=== PATIENT | female | born 1960 | race Caucasian/White ===

== ENCOUNTER 2017-04-10 17:30 | Emergency (ER) | payer BC, OTHER ==
[~2017-04-10] VITALS: Ht 160 cm; Wt 66.6 kg
[~2017-04-10 17:30] MED LIST: CYAN3INJ; FRRG PO; LRT5 PO; MULT-506 PO
[2017-04-10 17:48] VITALS: TEMP 36.7; Ht 160 cm; Wt 66.6 kg
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
[2017-04-10] MEDS ORDERED: CYNI1000 INJ (18:43)
[2017-04-10] MEDS ORDERED: CHOL1000 PO (18:43)
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
[2017-04-10 19:27] VITALS: BP 139/85; PULSE 73; O2SAT 93
[2017-07-31] MEDS ORDERED: ROPI0.5T15 PO (14:08)
== END 2017-04-10 19:28 | disposition home or self-care (01) ==
LOC: C.EDB 17:32 → C.EDD 19:28
DX: R51 Headache (principal); M54.2 Cervicalgia; M79.601 Pain in right arm; M79.602 Pain in left arm; V47.5XXA Car driver injured in collision with fixed or stationary object in traffic accident, initial encounter; Z79.899 Other long term (current) drug therapy

== ENCOUNTER → 2017-06-13 | Outpatient (CLI) | payer OTHER ==
[~2017-06-13] MED LIST changes: +CHOL1000 PO; -CYAN3INJ; +CYNI1000 INJ; -FRRG PO; -LRT5 PO; -MULT-506 PO; +ROPI0.5T15 PO
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
== END | disposition home or self-care (01) ==
LOC: C.RDSM 11:31
PROVIDERS: ATTEND Internal Medicine
DX: M54.5 Low back pain (principal); M41.9 Scoliosis, unspecified

== ENCOUNTER → 2017-06-18 | Outpatient (CLI) | payer OTHER ==
--- NOTE | 2017-06-18 16:04 | DIAGNOSTIC IMAGING REPORT ---
MRI OF THE LUMBAR SPINE WITHOUT IV CONTRAST CLINICAL HISTORY: Low back pain. COMPARISON STUDY: Radiographs of lumbar spine dated 06/13/2017. TECHNIQUE: MRI of the lumbar spine is performed using various T1 and T2-weighted sequences in the axial and sagittal planes. IV contrast was not administered for this examination. FINDINGS: Lumbar spine: Vertebral body height and alignment are maintained throughout the lumbar spine. Normal marrow signal intensity is preserved throughout the visualized bony structures. The transverse and spinous processes are intact as imaged. There is no evidence of spondylolysis. No destructive bony lesion is suggested. Intervertebral discs: There is degenerative disc desiccation seen throughout the lumbar spine. There is no significant loss of height. Spinal cord: Visualized portions of the spinal cord are normal in morphology and signal intensity. The conus medullaris terminates at the level of L1. The nerve roots of the cauda equina are normal in morphology. L1-L2: Unremarkable. L2-L3: Unremarkable. L3-L4: There is a small posterior disc bulge with annular fissure. There is no significant acquired compromise of the central canal. Facet arthropathy is of no confluence. The neural foramina are patent. L4-L5: There is minimal posterior disc bulge. There is no significant acquired compromise of the central canal. Facet arthropathy is of no confluence. The neural foramina are patent. L5-S1: The central canal and neural foramina are patent. Facet arthropathy is of no consequence. Sacrum: The visualized sacrum is normal in morphology and signal intensity. Small Tarlov cysts are suggested measuring up to 13 mm. Soft tissues: The paraspinous soft tissues are within normal limits. The partially imaged retroperitoneal structures are grossly unremarkable but incompletely evaluated. IMPRESSION: 1. There is no disc herniation or significant central canal stenosis seen throughout the lumbosacral spine. 2. Degenerative disc disease and mild spondylotic change as above. See above discussion for detailed level by level analysis. 3. No destructive bony lesion is identified. Dictated: 06/18/2017 3:31 PM Transcribed: 06/18/2017 4:03 PM Brittany Electronically signed by: Ty Raymond M.D. 06/19/2017 7:11 AM Dictated Date/Time: 06/18/2017 3:31 PM
== END | disposition home or self-care (01) ==
LOC: C.MRIBC 14:46
PROVIDERS: ATTEND Internal Medicine
DX: M54.5 Low back pain (principal)

== ENCOUNTER → 2017-07-17 | Outpatient (CLI) | payer OTHER ==
--- NOTE | 2017-07-17 13:52 | DIAGNOSTIC IMAGING REPORT ---
LEFT KNEE RADIOGRAPHS WITH COMPARISON STANDING AP RADIOGRAPH OF THE RIGHT KNEE CLINICAL HISTORY: Left knee pain. COMPARISON: None FINDINGS: Comparison standing AP radiograph the right knee demonstrates no fracture. There is mild osteophytosis. Alignment of the left knee is anatomic. There is no fracture or suspicious lesion. A moderate left knee joint effusion is present. There is mild patellofemoral compartment joint space narrowing with tricompartmental osteophytosis. There are a few possible small joint bodies. IMPRESSION: 1. No acute fracture. 2. Moderate left knee joint effusion. Possible small joint bodies. 3. Moderate osteoarthritis within the patellofemoral compartment with mild osteoarthritis within the medial and lateral compartments of the left knee. Electronically signed by: Brodie Samano M.D. 07/17/2017 1:51 PM Dictated Date/Time: 07/17/2017 1:48 PM
== END | disposition home or self-care (01) ==
LOC: C.RDSM 13:29
PROVIDERS: ATTEND Physician Assistant
DX: M25.562 Pain in left knee (principal); M25.462 Effusion, left knee; M17.12 Unilateral primary osteoarthritis, left knee

== ENCOUNTER → 2017-07-31 | Day surgery (SDC) | payer OTHER ==
[2017-07-08 11:12] VITALS: Ht 160 cm; Wt 65.9 kg
[~2017-07-31] VITALS: Ht 160 cm; Wt 65.9 kg
[~2017-07-31] MED LIST changes: +IOPAMIDOL INJ 61% 15 ML VIAL ONE; +LIDOCAINE HCL 1% MPF 5 ML VIAL ONE; +SODIUM CHLORIDE 0.9% INJ 10 ML VIAL ONE
--- NOTE | 2017-07-31 14:55 | History & Physical Bridge - SC ---
H&P Re-Evaluation Bridge Note: I have examined the patient, reviewed the History & Physical and in the interval since the performance of the History & Physical I have noted the following changes of clinical significance: No changes noted
[2017-07-31 15:22] VITALS: TEMP 36.8
--- NOTE | 2017-07-31 15:28 | Discharge Instructions ---
Discharge Instructions Date of Service Jul 31, 2017. Visit Reason for Visit: Sacral Radiculopathy Discharge Discharge Diagnosis / Problem: right leg pain Discharge Goals Goal(s): Decrease discomfort, Improve function Activity Recommendations Activity Limitations: resume your previous activity Anesthesia . Post Anesthesia Instructions: If you have had General Anesthesia or IV Sedation: * Do not drive today. * Resume driving when surgeon permits. * Do not make important decisions or sign legal documents today. * Call surgeon for: 1. Temperature elevations greater than 101 degrees F. 2. Uncontrollable pain. 3. Excessive bleeding. 4. Persistent nausea and vomiting. 5. Medication intolerance (nausea, vomiting or rash). * For nausea and vomiting use only clear liquids such as: tea, soda, bouillon until nausea subsides, then gradually increase diet as tolerated. * If you have any concerns or questions, call your surgeon's office. If physician is unavailable and it is an emergency, call 911 or go to the nearest emergency room. . Diet Recommendations Recommended Home Diet: resume previous diet Procedures Procedures Performed: LUMBAR EPIDURAL STEROID INJECTION Pending Studies Studies pending at discharge: no Medical Emergencies . Who to Call and When: Medical Emergencies: If at any time you feel your situation is an emergency, please call 911 immediately. . Non-Emergent Contact Non-Emergency issues call your: Specialist . . "Provider Documentation" section prepared by Trevor Bellamy. .
[2017-07-31 15:34] VITALS: BP 167/99; PULSE 70; O2SAT 100
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
== END | disposition home or self-care (01) ==
LOC: X.SURG 14:01
PROVIDERS: ATTEND Physical Medicine & Rehabilitation
DX: M54.17 Radiculopathy, lumbosacral region (principal)

== ENCOUNTER 2024-10-06 04:55 | Observation (INO) ==
--- NOTE | 2024-09-21 13:34 | PAT Medication Instructions ---
Medication Instructions Date of Service September 21, 2024 Home Medications multivitamin 1 tab PO QAM ropinirole 1 mg tablet 1 mg PO QAM cholecalciferol (vitamin D3) 125 mcg (5,000 unit) tablet (Vitamin D3) 250 mcg PO WK cyanocobalamin (vitamin B-12) 1,000 mcg/mL injection solution 0 mcg IM MONTHLY acetaminophen 500 mg tablet (Tylenol Extra Strength) 1,000 mg PO UD PRN calcium 600 mg capsule 600 mg PO HS celecoxib 200 mg capsule (Celebrex) 200 mg PO HS oxybutynin chloride 10 mg tablet,extended release 24 hr 10 mg PO QAM ropinirole 1 mg tablet 2 mg PO HS Continue as directed cyanocobalamin (vitamin B-12) 1,000 mcg/mL injection solution 0 mcg IM MONTHLY acetaminophen 500 mg tablet (Tylenol Extra Strength) 1,000 mg PO UD PRN(if needed) ASK your surgeon for instructions celecoxib 200 mg capsule (Celebrex) 200 mg PO HS DO NOT take the morning of surgery multivitamin 1 tab PO QAM cholecalciferol (vitamin D3) 125 mcg (5,000 unit) tablet (Vitamin D3) 250 mcg PO WK oxybutynin chloride 10 mg tablet,extended release 24 hr 10 mg PO QAM Take morning of surgery With a small sip of water, OTHERWISE NOTHING TO EAT OR DRINK AFTER MIDNIGHT: ropinirole 1 mg tablet 1 mg PO QAM Take evening before surgery calcium 600 mg capsule 600 mg PO HS ropinirole 1 mg tablet 2 mg PO HS Other Notes If you have any questions please call us at [phone] or [phone] or [phone] or [phone]
--- NOTE | 2024-09-22 15:29 | Anesthesiology Consultation ---
Date of Service September 22, 2024 Assessment & Plan (1) Encounter for pre-operative examination: - Infectious disease screening: Per assessment on 09/22/24- No known recent infectious disease contacts or current infectious disease symptoms. - Outpatient joint assessment: Pt currently scheduled for inpatient pathway. If surgeon requests review for outpatient joint pathway, patient is an acceptable candidate for outpatient joint program from anesthesia standpoint pending surgeon's office assessment that patient is motivated, has good support and completes [facility] Day Joint Program preop requirements. - Cardiology visit (07/27/24): "Pt returns to EP for remote F/Q due to loop at OVI.. Syncope s/p LINQ insertion 02/2021.. Junctional bradycardia.. S/p gastric bypass surgery.. Pt Might need a right knee replacement.. Pt had plastic surgery on her thighs to remove the extra skin.. Post op she had hypertensive urgency with spilling troponins and had a cardiac cath and was told everything was fine.. Recommend loop insertion explant.. Recommend echo.." > Insurance denial for insertion of new loop device per communications notes (cardio aware). Echo obtained 07/29/24. - Patient acceptable risk for surgery pending surgeon-ordered PCP ([facility]/Dr. Yady Craig) and cardiology ([facility]/Dr. Watts) clearances ([facility] communications notes started regarding this). Chart Review Chart Review: Patient seen in Pre Admission Testing Teaching & Discussion Pre-Anesthesia Teaching/Discussion Notes: Instructed NPO after midnight before surgery,except medications with 15 cc of water. Medication instructions provided according to the PAT guidelines. History Surgery Operation Date: 10/06/24 07:15 Proposed Procedures p Left Total Knee Arthroplasty - Epifanio Rodney Dominguez MD Height/Weight Height: 5 ft 1 in Weight: 64.4 kg Allergies Allergy/AdvReac Type Severity Reaction Status Date / Time gabapentin AdvReac Fluid Verified 09/22/24 16:09 retention Medications Home Medications Medication Instructions Recorded Confirmed Last Taken multivitamin 1 tab PO QAM 03/04/19 09/21/24 02/29/20 ropinirole 1 mg tablet 1 mg PO QAM 03/04/19 09/21/24 02/28/20 cholecalciferol (vitamin D3) 125 250 mcg PO WK 02/29/20 09/21/24 02/27/20 mcg (5,000 unit) tablet (Vitamin D3) cyanocobalamin (vitamin B-12) 0 mcg IM MONTHLY 02/29/20 09/21/24 02/28/20 1,000 mcg/mL injection solution acetaminophen 500 mg tablet 1,000 mg PO UD PRN Pain 06/14/20 09/21/24 Unknown (Tylenol Extra Strength) calcium 600 mg capsule 600 mg PO HS 09/21/24 09/21/24 Unknown celecoxib 200 mg capsule (Celebrex) 200 mg PO HS 09/21/24 09/21/24 Unknown oxybutynin chloride 10 mg 10 mg PO QAM 09/21/24 09/21/24 Unknown tablet,extended release 24 hr ropinirole 1 mg tablet 2 mg PO HS 09/21/24 09/21/24 Unknown Past Medical History Medical History (Updated 09/22/24 @ 15:27 by Gloria Silver) History of colon polyps History of depression Situational after loss of mother History of high blood pressure Single episode 2021 post sx complication (thighplasty) per patient History of syncope (2019) x3 incidents in 2019 (none since) Loop recorder placed Follows with [facility]/Dr. Watts Osteoarthritis Overactive bladder Restless leg syndrome Exercise / Class Metabolic Activity II 4-5 Yardwork/Stairs/Walk up hill Past Family History Family History Mother Family history of diabetes mellitus Uncle Family hx of colon cancer Past Surgical History Surgical History (Updated 09/22/24 @ 15:27 by Gloria Silver) H/O gastric bypass 2002 History of abdominoplasty History of appendectomy History of breast lift History of cardiac cath 1992- no stents History of cholecystectomy History of colonoscopy History of dilatation and curettage History of facelift Per records History of herniorrhaphy History of laparoscopy History of plastic surgery (2021) Thighplasty Following sx drain stopped working and both legs opened up ("had to heal openly") History of tonsillectomy History of tooth extraction History of total abdominal hysterectomy and bilateral salpingo-oophorectomy Implantable loop recorder present Needs new battery/insurance denying due to only hx of syncope was in 2019 per pt Past Anesthesia History No Hx of Anesthesia Complications and No Family Hx of Anesthesia Complications History of PONV No Hx of PONV and No Hx of Motion Sickness Social History Smoking Status: Former smoker tobacco type: cigarettes Smoking cigarettes per day: LESS THAN 10 CIG DAILY Do You Dip or Chew Tobacco: No Smoking End Date: 4 yr ago Hx Alcohol Use: No Hx Substance Use: No substance use type: does not use Review of Systems Patient denies chest pain, shortness of breath, dyspnea on exertion, fever, chills, cough, wheezing. Physical Exam Vital Signs BP 139/92 P 70 SP02 95%RA RESP 16 Physical Full cervical extension range of motion. Full TMJ range of motion. TMD 3 finger breaths Mallampati Score I Dentition: full upper/lower dentures Lungs: clear throughout to auscultation Cardiac: regular rate and rhythm, no murmurs noted Spine: normal Carotid arteries: negative bruit Extremities: no LE edema Lab Results Anesthesia Preop Results Results Anesthesia Widget: WBC 6.35 K/ul (4.8-10.8) 09/22/24 Hgb 11.9 g/dl (12.0-16.0) L 09/22/24 Hct 35.9 % (37.0-47.0) L 09/22/24 Plt 366 K/uL (130-400) 09/22/24 Na 138 mmol/L (136-145) 09/22/24 K 4.1 mmol/L (3.5-5.1) 09/22/24 Cl 103 mmol/L (98-107) 09/22/24 CO2 26 mmol/L (21-32) 09/22/24 BUN 23 mg/dl (6-23) 09/22/24 Creat 0.64 mg/dl (0.6-1.2) 09/22/24 Glucose Level 93 mg/dl (70-99(Fasting)) 09/22/24 PT 10.3 Seconds (9.0-12.0) 09/22/24 PTT 25 Seconds (21-31) 09/22/24 INR 0.9 (0.9-1.1) 09/22/24 Urine Color Yellow 09/22/24 Urine Appearance Clear (Clear) 09/22/24 Urine pH 5.5 (4.5-7.5) 09/22/24 Urine Specific [place] 1.023 (1.000-1.030) 09/22/24 Urine Protein Negative (Negative) 09/22/24 Urine Glucose (UA) Negative (Negative) 09/22/24 Urine Ketones Negative (Negative) 09/22/24 Urine Blood Trace (Negative) H 09/22/24 Urine Nitrite Negative (Negative) 09/22/24 Urine Bilirubin Negative (Negative) 09/22/24 Urine Urobilinogen Negative (Negative) 09/22/24 Urine Leukocyte Esterase Negative (Negative) 09/22/24 Urine WBC (Auto) 0-5 /hpf (0-5) 09/22/24 Urine RBC (Auto) 3-5 /hpf (0-2) H 09/22/24 Urine Hyaline Casts (Auto) 0-2 /lpf (0-2) 09/22/24 Urine Epithelial Cells (Auto) 0-2 /hpf (0-2) 09/22/24 Urine Bacteria (Auto) None Seen (None Seen) 09/22/24 Blood Type A Negative 09/22/24 Antibody Screen NEGATIVE 09/22/24 Testing Electrocardiogram Date: 07/27/24 Sinus bradycardia 57 bpm. 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 Chest X-Ray Date: 09/22/24 FINDINGS: The lungs are clear and well-expanded with no pulmonary infiltrate or pleural effusion. The cardiomediastinal silhouette is within normal limits. Prominence of the aortic arch is seen with arteriosclerotic calcification. Loop recorder device is seen overlapping the cardiac silhouette. Mild spondylosis in the visualized thoracic spine. IMPRESSION: 1. No acute cardiopulmonary disease. 2. Arteriosclerotic changes in the thoracic aorta Echocardiogram Date: 07/29/24 LVEF 60 to 64%. LV wall motion is normal. Grade 1 diastolic dysfunction. Mild MR. No LV mural thrombus. Stress Test Date: 02/23/21 Stress echo is negative for inducible ischemia. No arrhythmias. Above average exercise tolerance for age. 10.1 METS. 95% MPHR. At rest, normal LV chamber size wall thickness. EF 60 to 65%. Grade 1 diastolic dysfunction. No significant valvular pathology. Other Testing Loop Recorder report Date: 08/02/24 0% AT burden. No new clinically significant arrhythmias oversensing of T waves. Current battery status: BALL SHAGGER. Battery depletion rate appears normal. Presenting rhythm SR. "This is a normal remote diagnostic device check"
[2024-10-06] MEDS: Scopolamine 1 MG TDSY TD SCH (06:10)
[2024-10-06] MEDS: ACETAMINOPHEN 500 MG TAB PO SCH ×2 (06:10→14:01)
[2024-10-06] MEDS: CeleBREX 200 MG CAP PO SCH (06:10)
[2024-10-06] MEDS: LR 500ML BOLUS, THEN 15ML/HR IV SCH (06:11)
[2024-10-06] MEDS: LR 60ML/HR IV SCH (06:12)
[2024-10-06] MEDS ORDERED: BUPIVACAINE 0.5 % 5 MG/1 ML PF 10ML VIAL ONE (06:23)
[2024-10-06] MEDS ORDERED: ROPIVACAINE 0.5% 5 MG/ML 30 ML VIAL ONE (06:24)
--- NOTE | 2024-10-06 06:35 | History & Physical Bridge Note ---
Date of Service October 06, 2024 History & Physical Bridge Note I have examined the patient, reviewed the History & Physical and in the interval since the performance of the History & Physical I have noted the following changes of clinical significance: no changes noted
[2024-10-06] MEDS ORDERED: ONDANSETRON INJ 2 MG/ML 2 ML VIAL ONE (06:38)
[2024-10-06] MEDS ORDERED: MIDAZOLAM HCL 1 MG/ML 2ML VIAL ONE (06:38)
[2024-10-06] MEDS ORDERED: GLYCOPYRROLATE 0.2 MG/ML VIAL ONE (06:38)
[2024-10-06] MEDS ORDERED: PROPOFOL IV EMULSION 10 MG/ML 100 ML VIAL IV ONE (06:38)
[2024-10-06] MEDS ORDERED: LIDOCAINE 2% 2 ML VIAL/AMP(20MG/ML) INFIL ONE (06:38)
[2024-10-06] MEDS ORDERED: fentaNYL citrate PF 100 MCG/2 ML VIAL ONE (06:39)
[2024-10-06] MEDS ORDERED: KETAMINE HCL 10MG/ML SYR ONE (06:39)
[2024-10-06] MEDS: TRANEXAMIC ACID 1,000 MG **IV Pre-op IV SCH (06:48)
[2024-10-06] MEDS: ceFAZolin 2000MG 2,000 MG/15 ML SYR IV SCH ×2 (07:00→15:35)
[2024-10-06] MEDS ORDERED: KETOROLAC 30 MG/ML VIAL ONE (07:09)
[2024-10-06] MEDS ORDERED: ATROPINE SULFATE 0.1 MG/ML 10ML SYR IV PRN (07:18)
[2024-10-06] MEDS ORDERED: HYDROmorphone INJ 1 MG/ML SYRINGE IV PRN (07:18)
[2024-10-06] MEDS ORDERED: KETOROLAC 30 MG/ML VIAL IV PRN (07:18)
[2024-10-06] MEDS ORDERED: ONDANSETRON INJ 2 MG/ML 2 ML VIAL IV PRN ×2 (07:18→11:18)
[2024-10-06] MEDS ORDERED: ePHEDrine sulfate 50 MG/ML AMP IV PRN (07:18)
[2024-10-06] MEDS: ORTHO JOINT ANESTHETIC ONE (08:19)
[2024-10-06] MEDS: ROPIV 0.5% 246mg, Ketorolac 30mg, EPINEPHrine 0.5mg in NSS INFIL SCH (08:50)
[2024-10-06] MEDS: TRANEXAMIC ACID 1,000 MG **IV Intra-op IV SCH (08:50)
--- NOTE | 2024-10-06 09:23 | Post Operative Brief Note ---
Immediate Post Op Note Date of Surgery October 06, 2024 Pre & Post Diagnosis Operation Date: 10/06/24 07:00 Pre-Op Diagnosis: Left Knee Osteoarthritis Post-Op Diagnosis: Left Knee Osteoarthritis I identified the patient and participated in the time-out.: Yes Procedure Operation Date: 10/06/24 07:00 Actual Procedures p Left Total Knee Arthroplasty(Left) - Epifanio Dominguez MD Surgeon Epifanio Dominguez MD Electrical Sign Wirer Silas Diaz PA-C (No fellow avail) Estimated Blood Loss 75 Findings Consistent with Post-Op Diagnosis Fluids 1000 cc Specimens Left knee contents Anesthesia Type MAC Spinal Regional Complications none
--- NOTE | 2024-10-06 09:23 | Operative Report ---
Post Operative Report Pre & Post Diagnosis Operation Date: 10/06/24 07:00 Pre-Op Diagnosis: Left Knee Osteoarthritis Post-Op Diagnosis: Left Knee Osteoarthritis I identified the patient and participated in the time-out.: Yes Procedure Operation Date: 10/06/24 07:00 Actual Procedures p [Left] Total knee replacement, imageless computer assisted navigation (Left) - Epifanio Dominguez MD Surgeon Epifanio Dominguez MD Tight Barrel Inspector Silas Diaz PA-C (No fellow avail) Estimated Blood Loss 75 Findings See Below Examined Under Anesthesia: ROM -- There was 5 degrees to 125 degrees of flexion Ligamentous examination -- revealed stable Angelic, posterior drawer, varus and valgus stress at 0 and 30 degrees. Outerbridge Grade IV changes of all 3 compartments. There was some synovitis and fibrinous material in the suprapatellar pouch. Fluids 1000 cc Specimens Left knee contents Drains n/a Anesthesia Type MAC Spinal Regional Complications none Indications This is a 64-year-old female who has clinical and radiographic findings consistent with osteoarthritis of the a left knee. I recommended that a left total knee replacement be performed. The patient understands the risks of surgery, which include but not limited to: bleeding, infection, re-operation, damage to nerves and arteries, continued knee pain, knee stiffness, DVT, and . The patient understands all these instructions and explanations, all his questions have been satisfactorily addressed and the patient has elected to proceed. Informed consent was signed. Description of Procedure IMPLANTS: 1. Femur: Triathlon #4 Left PS. 2. Tibia: Triathlon #3 Spicer with 12 x 50 mm stem. 3. Insert: Triathlon #3 x 9 mm PS X3 poly. 4. Patella: Triathlon A29 x 9 mm X3 poly. 5. Palacos cement. Silas Diaz PA-C is assisting with positioning, retracting, and closure due to fellow not available. Procedure: The patient was taken to the Operating Room and placed in the supine position after spinal and adductor canal nerve block was administered. My initials and a multidisciplinary time-out were used to identify the left leg as the correct operative limb. A tourniquet was placed high in the thigh. Prior to the incision, 2 grams of intravenous Ancef were given. One g of TXA was given pre- operatively and another after the tourniquet was released. The left leg was then prepped and draped in a standard sterile fashion. An Esmarch was used to exsanguinate the leg and the tourniquet was inflated to 250 mmHg. The planned mid-line 20 cm incision was created exposing the extensor mechanism. The medial parapatellar arthrotomy was made and the patella was everted. The patella was addressed first. It was prepared by reaming from 17 mm down to 11 mm. An A29 button was found to fit best. The peg holes were made in the standard fashion. The femur was addressed next and using computer assisted OrthoAlign with 3 degrees of flexion and 0 degrees of valgus, removing 10 mm in the standard fashion for the distal cut. The cut was made and the 4-in-1 cutting block for a size 4 femur was placed. These cuts and the cuts to place the box were made in the standard fashion. Our attention was then drawn to the tibia cut with using imageless computer assisted OrthoAlign, taking 2 mm from the lateral low side. There was sufficient extension and flexion gap to fit a 9 mm spacer. A #3 Tibial baseplate fit well. A trial with a 9 mm spacer showed excellent stability in both flexion and extension, with good ligament balance, and thumbs free patellar tracking. Range of motion of 0-130 degrees. The tibial baseplate was prepped for the keel and stem. A stem was used due to some areas of soft bone, to avoid subsidence. All components were removed. 90 ml of total knee cocktail were injected into the soft tissues and periosteum. All surfaces were copiously irrigated prior to placement of the components. The femoral component followed by Tibial baseplate were cemented in place and the 9 mm X3 poly was placed. Next, the patellar button was placed using the same cement. Once the cement had cured, the range of motion and stability were unchanged. The tourniquet was deflated. Hemostasis was obtained. Another 1g TXA was given. The extensor mechanism was closed with 1-0 Vicryl and 0 Stratafix with the knee bent approximately 60 degrees in a standard fashion. The peritenon and deep fascia was closed with 2-0 Vicryl. The subcutaneous layer was closed with 3-0 Vicryl. The skin was closed with Zipline and shield. The limb was cleaned and dried. 4x4 dressing was placed over top followed by ABDs, sterile Webril, and a foot to thigh Meño bandage. The patient was then transferred to the Recovery Room in stable condition. The sponge and needle counts were correct. POST-OP INSTRUCTIONS: The patient will be WBAT. The patient will be admitted to the hospital. Complete 24-hour course antibiotics. Labs will be obtained during the stay. DVT prophylaxis will include aspirin for 6 weeks, TEDs, and mechanical foot pumps. The dressing will be changed postop day #2-3 and covered with a Silverlon dressing. I attest to the content of the Intraoperative Record and any orders documented therein. Any exceptions are noted below.
--- NOTE | 2024-10-06 09:46 | Operative Report ---
Post Operative Report Pre & Post Diagnosis Operation Date: 10/06/24 07:00 Pre-Op Diagnosis: Left Knee Osteoarthritis Post-Op Diagnosis: Left Knee Osteoarthritis I identified the patient and participated in the time-out.: Yes Procedure Operation Date: 10/06/24 07:00 Actual Procedures p Left Total Knee Arthroplasty(Left) - Epifanio Rodney Dominguez MD Surgeon Dr Dominguez Verify Rep Silas Diaz PA-C (No fellow avail) Estimated Blood Loss 75 Findings Consistent with Post-Op Diagnosis Specimens left knee bone and synovium Description of Procedure Pt was taken to operating room and properly positioned for procedure. Refer to anesthesia's note for anesthesia used. Pt was given pre-op antibiotics. Prepped and draped in sterile fashion. I was present during the entire case and assisted with positioning, instrumentation, closure and dressings. Please see surgeon's op report for further detail. Pt was awake and transferred to PACU in stable condition I attest to the content of the Intraoperative Record and any orders documented therein. Any exceptions are noted below.
--- NOTE | 2024-10-06 10:27 | XRay Report ---
XR knee LT 1 or 2V routine CLINICAL HISTORY: Postoperative evaluation. COMPARISON: Left knee radiographs June 10, 2024. FINDINGS: Alignment of the total left knee arthroplasty is anatomic. There is no periprosthetic frac ture or unexpected radiopaque foreign body. IMPRESSION: Expected findings following total left knee arthroplasty. ACT 112: Negative or not required by law. Electronically signed by: Brodie Samano M.D. 10/06/2024 10:25 AM
[2024-10-06] MEDS ORDERED: NALOXONE HCL 0.4 MG/1 ML VIAL/CARP IV PRN (11:18)
[2024-10-06] MEDS ORDERED: HYDROmorphone INJ 0.5 MG/0.5 ML SYR IV PRN (11:18)
[2024-10-06] MEDS ORDERED: bisacodyL 10 MG SUPP PR PRN (11:18)
[2024-10-06] MEDS ORDERED: METOCLOPRAMIDE HCL INJ 5 MG/ML 2 ML VIAL IV PRN (11:18)
[2024-10-06] MEDS ORDERED: diphenhydrAMINE Capsule 25 MG CAP PO PRN (11:18)
[2024-10-06] MEDS ORDERED: MAGNESIUM HYDROXIDE SUSP 30 ML UDC PO PRN (11:18)
--- NOTE | 2024-10-06 13:07 | Anesthesiology Progress Note ---
Date of Service October 06, 2024 Anesthesia Post Procedure Vital Signs Vital Signs: Temp Pulse Pulse Resp BP Pulse Ox O2 Del Method 10/06/24 12:21 36.3 C L 74 18 123/88 100 Room Air 10/06/24 11:48 36.5 C 75 18 126/90 99 Room Air 10/06/24 11:19 36.4 C L 79 18 136/89 98 Room Air 10/06/24 10:55 75 14 141/90 H 96 Room Air 10/06/24 10:45 75 12 130/89 95 Room Air 10/06/24 10:35 36.4 C L 73 12 131/87 95 Room Air 10/06/24 10:25 76 12 139/88 94 Room Air 10/06/24 10:15 76 17 115/87 99 Room Air 10/06/24 10:05 78 14 118/85 97 Room Air 10/06/24 09:55 76 13 125/82 100 Oxymask 10/06/24 09:45 76 19 109/77 100 Oxymask 10/06/24 09:37 36.7 C 87 18 111/72 96 Oxymask 10/06/24 05:48 36.8 C 80 18 123/68 96 Room Air O2 Flow Rate 10/06/24 12:21 10/06/24 11:48 10/06/24 11:19 10/06/24 10:55 10/06/24 10:45 10/06/24 10:35 10/06/24 10:25 10/06/24 10:15 10/06/24 10:05 10/06/24 09:55 2 10/06/24 09:45 6 10/06/24 09:37 8 10/06/24 05:48 Transfer of Care Handoff Completed per policy Notes Mental Status: alert / awake / arousable Patient Amnestic to Procedure: Yes Nausea / Vomiting: adequately controlled Pain: adequately controlled Airway Patency, RR, SpO2: stable & adequate BP & HR: stable & adequate Hydration State: stable & adequate Anesthetic Complications: no major complications apparent
--- NOTE | 2024-10-06 14:56 | Orthopedic Progress Note ---
Date of Service October 06, 2024 Assessment & Plan (1) Osteoarthritis, knee: Plan: POD #0 s/p L TKA, doing as well as expected. Resume diet. WBAT with walker. OOB to chair. Continue pain control. Check labs tomorrow. Complete 24 hrs Abx. DVT prophylaxis: TEDs 3 weeks, foot pumps while in hospital, ASA 81 mg BID for 6 weeks. PT/OT. D/C planning. Dressing to be changed POD 2-3 to Silverlon type dressing. Present on Admission?: Yes Admission and Anticipated Discharge Date Admission Date: October 06, 2024 Subjective Doing well, left leg is starting to get some feeling back. Physical Exam Physical Exam: LLE: Sensation to light touch absent. Unable to wiggle toes. Dressing is clean, dry, intact. Results & Data Vital Signs (Past 12 Hours) Vital Signs Temp Pulse Pulse Resp BP Pulse Ox O2 Del Method 10/06/24 14:14 36.5 C 73 18 123/85 98 Room Air 10/06/24 13:18 36.5 C 72 18 145/91 H 98 Room Air 10/06/24 12:21 36.3 C L 74 18 123/88 100 Room Air 10/06/24 11:48 36.5 C 75 18 126/90 99 Room Air 10/06/24 11:19 36.4 C L 79 18 136/89 98 Room Air 10/06/24 10:55 75 14 141/90 H 96 Room Air 10/06/24 10:45 75 12 130/89 95 Room Air 10/06/24 10:35 36.4 C L 73 12 131/87 95 Room Air 10/06/24 10:25 76 12 139/88 94 Room Air 10/06/24 10:15 76 17 115/87 99 Room Air 10/06/24 10:05 78 14 118/85 97 Room Air 10/06/24 09:55 76 13 125/82 100 Oxymask 10/06/24 09:45 76 19 109/77 100 Oxymask 10/06/24 09:37 36.7 C 87 18 111/72 96 Oxymask 10/06/24 05:48 36.8 C 80 18 123/68 96 Room Air O2 Flow Rate 10/06/24 14:14 10/06/24 13:18 10/06/24 12:21 10/06/24 11:48 10/06/24 11:19 10/06/24 10:55 10/06/24 10:45 10/06/24 10:35 10/06/24 10:25 10/06/24 10:15 10/06/24 10:05 10/06/24 09:55 2 10/06/24 09:45 6 10/06/24 09:37 8 10/06/24 05:48 Diagnostic Findings XR knee LT 1 or 2V routine CLINICAL HISTORY: Postoperative evaluation. COMPARISON: Left knee radiographs June 10, 2024. FINDINGS: Alignment of the total left knee arthroplasty is anatomic. There is no periprosthetic fracture or unexpected radiopaque foreign body. IMPRESSION: Expected findings following total left knee arthroplasty.
[2024-10-06] MEDS: Scopolamine CHECK PATCH PLACEMENT SCH (15:35)
[2024-10-06] MEDS: oxyCODONE HCL IR 5 MG TAB (IMMEDIATE RELEASE) PO PRN (16:03)
[2024-10-06] MEDS: ASCORBIC ACID 500 MG TAB PO SCH (17:10)
[2024-10-06] MEDS: FERROUS GLUCONATE 324 MG TAB PO SCH (17:10)
[2024-10-06] MEDS: rOPINIRole HCL 2 MG TABLET PO SCH (18:08)
[2024-10-06] MEDS: SENNA 8.6 MG TAB PO SCH (20:34)
[2024-10-06] MEDS: DOCUSATE SODIUM 100 MG CAP PO SCH (20:34)
--- OUTSIDE RECORDS SUMMARY | 2024-10-06 20:53 | External Medical Summary | Summary of Care ---
Author Name Unknown Organization [facility] Address [address] [facility] [place] [address] Phone [phone] Care Team Providers Care Inspector Experimental Assembly Name Role Phone Yady Craig MD Primary Care Provider Reason for Visit * Reason Onset Date Comments Appointment 09/21/2024 Printed for prov ider review Fax 09/21/2024 Pre-op clearance Encounter Details Date Type Department Care Team (Late st Contact Info) Description 09/21/[address] [facility] [address] [place] [address] Yady Craig MD [address] [place] [address] Appointment (Printed for provider review);... Allergies Active Allergy Reactions Criticality Noted Date Comments Gabapentin High 04/03/2023 Other Reaction(s): fluid retention documented as of this encounter (statuses as of 10/01/2024) Medications CALCIUM CITRATE + 315-200 MG-IU OR TABS two pills twice a day 0 4 Active HM DAILY VITAMINS OR TABS "ONE A DAY" vitamins one a day 0 0 5 Active Insulin Syringes (Disposable) U-100 1 MLIndications:Inte stinal postoperative nonabsorption as directed 60 Each 2 Active BD Eclipse Syringe 25G X 1" 3 ML (Syringe/Needle (Disp)) Inject 1 ml Into large muscle every 30 days 12 Each 2 Active Aspirin 81 MG Oral Tablet Chewable Take 1 Tablet by mouth in the morning. with food.. 100 Tablet 5 2 Active Atorvastatin Calcium 40 MG Oral Tablet (Lipitor) TAKE ONE TABLET BY MOUTH EVERY DAY 30 Tablet 5 2 Active Vitamin D (Ergocalciferol) 1.25 MG (71957 UT) Oral CapsuleIndications :Vitamin D deficiency Take 1 capsule by mouth twice a week. Take with food that contains fat. 13 Capsule 1 2 Active Cyanocobalamin 1000 MCG/ML Injection Solution (Cyanocobalamin)In dications:Intestin al postoperative nonabsorption inject 1 ml into a large muscle every 30 days. 1 mL 12 4 Active CeleBREX 200 MG Oral Capsule Start: 06/10/24 3:20:00 PM EDT, See Instructions, Disp# 60 cap, Refills: 1, 1 cap PO bid x 2 weeks, then 200mg once daily, PRN: as needed for pain, Pharmacy: [id number] 4 Active oxyBUTYnin Chloride ER 10 MG Oral Tablet Extended Release 24 Hour (Ditropan XL)Indications:Uri nary frequency,Urge incontinence Take 1 Tablet by mouth in the morning. 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 10/27/2018 Iron deficiency anemia jfon jeanmarie to inadequate dietary iron intake 08/01/2017 S/P gastric bypass 07/28/2017 Anxiety and depression 07/28/2017 Primary osteoarthritis of both knees 07/03/2017 Restless legs syndrome 01/31/2015 Insomnia 06/21/2014 FERNANDEZ Confirmation Research Other*[id number] 07/2010 B12 malabsorption s/p gastric bypass 04/12/2003 Vitamin D deficiency documented as of this encounter (statuses as of 10/01/2024) Resolved Problems Problem Noted Date Diagnosed Date Resolved Date Gastric bypass status for obesity 08/01/2017 10/27/2018 Lumbar disc herniation 07/28/201710/27 Anxiety state 06/21/2014 07/28/2017 Dyslipidemia, goal to be determined 10/24/2009 12/06/2009 Overview (10/24/2009): Per Lipid Taxonomy. HTN, goal below 140/90 09/22/200912/06 Overview (09/22/2009): Modified per HTN Taxonomy. Calculus of kidney 09/12/2007 7 Overview (12/17/2007): left kidney Calculus of ureter 09/12/2007 7 Overview (12/17/2007): distal right ureter Iron deficiency anemia secon jeanmarie to inadequate dietary iron intake 04/01/2007 8 Tobacco use disorder 04/01/2007 018 ADVANCE DIRECTIVE INFORMATION 08/07/2005 07/28/2017 Overview (08/07/2005): No, Advance Directive brochure given to patient at prior appointment. PANNICULITIS, [facility] SITE 08/07/200501/16 Localized adiposity 11/14/2004 02/09/20 08 Hypertrophy of breast 04/19/20042007 LOC PRIM [id number] 11/02/200306/17 Hypertension 04/12/2003 09/22/2009 Overview (09/22/2009): Modified per HTN Taxonomy. 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 Iron deficiency anemia 10/27 Closed Colles' fracture 11/18 Overview (08/03/2008): FRACTURE CLOSED N->Z RADIUS-KIARA'S Benign neoplasm of colon 09/2017 documented as of this encounter (statuses as of 10/01/2024) Immunizations Name Administration Dates Next Due COVID-19 mRNA, LNP-s, No Pre serve, 2-Dose Series (Pfizer) 09/22/2021,03/09/2021,02/16/2021 Pneumococcal Polysaccharide PPV23 (Pneumovax) 07/28/2017 Seasonal Influenza Vac., MDV , IM, 0.5 mL (Fluzone) 09/17/2010,12/06/2009 Seasonal Influenza, PF, 6 M & above, IM , (FluLaval or Fluzone) 10/03/2022,08/14/2019,08/17/2018 Seasonal Influenza, Quadriva lent, No Preserve, IM 09/22/2021,08/02/2020,08/17/2018,07/28 TDAP (age 10 and older)(Boostrix) 10/27/2018 TDAP, Age 7 and older, IM (Adacel) 12/17/2007 Zoster Vaccine Recombinant (Shingrix) 11/13/2020 ,08/21/2020 documented as of this encounter Social History Tobacco Use Types Packs/Day Years Used Date Smoking Tobacco: Former Cigarettes 1 24 0 06/17/1994 - 06/17/2018 Smokeless Tobacco: Never Comments:occassionaly Alcohol Use Standard Drinks/Week Comments No 0 (1 standard drink = 0.6 oz pur e alcohol) PHQ-2 Answer Date Recorded PHQ-2 Score 0 09/20/2018 Hunger Vital Sign Answer Date Recorded Within the past 12 months, y ou worried that your food would run out before you got the money to buy more. Never true 06/24/20 24 Within the past 12 months, t he food you bought just didn't last and you didn't have money to get more. Never true 06/24/2024 Childcare Answer Date Recorded Do you feel overwhelmed with taking care of a child, family member or friend? No 06/24/2024 Does your family need help f inding childcare? (Household - for ages 0-17 years) Not on file 06/24/2024 Clothing Answer Date Recorded Have you been unable to get clothing when it was really needed? No 06/24/2024 Is your family able to get c lothes or diapers when needed? (Household - for ages 0-17 years) Not on file 06/24/2024 Personal Safety Answer Date Recorded Do you feel unsafe or have concerns for your saf ety? No 06/24/2024 Do you have concerns for you r family's safety? (Household - for ages 0-17 years) Not on file 06/24/2024 Utilities Answer Date Recorded Do you have trouble paying y our heating, water, or electric bill? No 06/24/2024 Is your family able to pay t he heat, water, or electric bill? (Household - for ages 0-17 years) Not on file 06/24/2024 Does your family have access to good internet? (Household - for ages 0-17 years) Not on file 06/24/2024 Employment Status Answer Date Recorded Are you unemployed or without regular income? No 06/24/2024 Does the household have a [facility] source of income? (Household - for ages 0-17 years) Not on file 06/24/2024 Social Connections Answer Date Recorded How often do you feel lonely or isolated from th ose around you? Never 06/24/2024 Financial Resource Strain Answer Date R ecorded Do you have any trouble payi ng for your medications, or do you think you might in the future? No 06/24/2024 Does your family have troubl e paying for medicine? (Household - for ages 0-17 years) Not on file 06/24/2024 Transportation Needs Answer Date Record ed Do you have trouble getting a ride to medical visits or work? (Adult - for ages 18 years and over) Not on file 06/24/2024 Does your family have a hard time getting a ride to doctors visits? (Household - for ages 0-17 years) Not on file 06/24/2024 Has lack of transportation k ept you from medical appointments, meetings, work, or from getting things needed for daily living? Check all that apply. No 06/24/2024 Do you (or your family) have trouble finding or paying for a ride (transportation)? (Household - for ages 0-17 years) Not on file 06/24/2024 Housing Stability Answer Date Recorded Do you currently live in a s helter or have no steady place to sleep at night? No 06/24/2024 Do you think you are at risk of becoming homeless? (Adult - for ages 18 years and over) Not on file 06/24/2024 Does your family worry about paying for your home or becoming homeless? (Household - for ages 0-17 years) Not on file 0 06/24/2024 Are you homeless or worried that you might be in the future? No 06/24/2024 Are you (or your family) armando eless or worried that you might be in the future? (Household - for ages 0-17 years) Not on file Food Insecurity Answer Date Recorded Do you need food for this week? No 06/24/2024 Are you able to get enough f ood for your family? (Household - for ages 0-17 years) Not on file 06/24/2024 Does your family need food t his week? (Household - for ages 0-17 years) Not on file 06/24/2024 Do you always have enough fo od for your family? 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 * Telephone Encounter - Yady Craig MD - 09/30/2024 5:07 PM EST If Cardiology has cleared, I see no reason to hold the surgery. Form completed, please fax. (On Rafa' desk) * Telephone Encounter - Sary Lomas LPN - 09/29/2024 3:01 PM EST Please advise-they need approval from PCP as well. * Telephone Encounter - Mary Baron OSA - 09/29/2024 12:10 PM EST [facility] calling to advise that they received pre-op clearance from Dr Watts in cardiology, but still need to get clearance from PCP. If PCP is agreeable to provide clearance without seeing pt for an appt, please write "patient cleared for surgery" with dated signature on pre-op clearance form and fax back to [phone]. Pt is scheduled for surgery 10.06.24. * Telephone Encounter - Radhika Samano NRCMA - 09/28/2024 5:53 PM EST Info sent to PCP and Dr Dominguez via fax. CHERELLE Sevilla * Telephone Encounter - Radhika Samano NRCMA - 09/28/2024 5:[address] Watts, pt does not need to post pone knee surgery. Per Dr Watts, pt is cleared from a cardiac standpoint for Left total knee replacement with Dr Dominguez on 10/06/2024. * Telephone Encounter - Lory Jain RN - 09/24/2024 3:37 PM EST Last evaluation 07/29/2024. Quiana, can you please discuss with Dr. Watts and advise. * Telephone Encounter - Yady Craig MD - 09/22/2024 3:19 PM EST Patient with complex cardiac history, followed by EP. Would need clearance with Cardiology. Forwarded to [facility] to see if they can see patient for clearance. * Telephone Encounter - Lory Perry OSA - 09/22/2024 9:00 AM EST No opem appointments until 10/07 please advise * Telephone Encounter - Sary Lomas LPN - 09/21/2024 6:50 PM EST PCP Clearance request form received via fax. Please schedule * Telephone Encounter - Sary Bolton OSA - 09/21/2024 11:25 AM EST No Appointments Available Patient declined appointments?: No What Visit Type is needed? Pre-Op If Acute Visit Type is needed, were surrounding clinics offered to patient (Yes/No)? N/A Was patient offered appointments with other available providers (Yes/No)? N/A See Call Details? (Yes or No): No Patient is scheduled to have Left total knee replacement with Dr Dominguez on 10/06/24, she will be having her preop testing comeplted with their office tomorrow, they will fax the results once available. They are needing her seen for a clearance. Please call Evelyn at Dr Dominguez's with an appointment . documented in this encounter Plan of Treatment Upcoming Encounters Date Type Department Care Team (Late st Contact Info) Description 08/09/2025 3:00 PM EDT Office Visit Cardiology, [facility] [address] [place] [address] Mirta Prado CRNP [address] [place] [address] Scheduled Procedures Name Priority Associated Diagnoses Date/Ti me COLONOSCOPY FLEXIBLE PROXIMA L DIAGNOSTIC Recall History of adenomatous polyp of colon Health Maintenance Due Date Last Done Comments Cologuard 02/05/2004 Fecal Occult Blood Test 02/05/2004 Sigmoidoscopy 02/05/2004 Lung Cancer Screening 2009 Depression Monitoring 09/10/2019 09/10/2018 Mammogram 08/24/2021 08/24/2020, 07/18, 07/23/2018, Additional history exists DXA Scan 02/05/2024 Pneumococcal Vaccine: 65+ Years (2 of 2 - PCV) 02/05/2024 07/28/2017 COVID-19 Vaccine ( - season) 2024 09/22/2021, 03/09/2021, 02/16/2021 Influenza Vaccine (FLU shot) (#1) 2024 10/03/2022, 09/22/2021, 08/02/2020, Additional history exists Diabetes Screening 09/26/2025 09/26/2022, 0 06/24/2022, 01/31/2021, Additional history exists Lipid Panel 02/20/2026 02/20/2021, 07/18, 01/14/2014, Additional history exists Colonoscopy 05/03/2026 05/03/2021, 04/17, 03/15/2021, Additional history exists Colorectal Cancer Screening 05/03/2026 DTap/Tdap Vaccines (3 - Td or Tdap) 10/27/2028 10/27/2018, 12/17/2007 Zoster Vaccines Completed 11/13/2020, 08/21/2020 RETIRED - COLONOSCOPY-EVERY 5 YRS AGES 18-100 Discontinued 05/03/2021, 05/03/2021, 03/15/2021, Additional history exists HPV (Gardasil) Vaccine Aged Out No lo nger eligible based on patient's age to complete this topic Hepatitis B Vaccine Aged Out No longe r eligible based on patient's age to complete this topic MENINGOCOCCAL (MENACTRA/MENVEO) Aged Out No longer eligible based on patient's age to complete this topic documented as of this encounter Medical Devices Not on filedocumented as of this encounter Care Teams Inspector Experimental Assembly Relationship Specialty Start Date End Date Yady Craig MD [address] [facility] [place] [address] PCP - General Internal Medicine 02/06/23 documented as of this encounter
--- OUTSIDE RECORDS SUMMARY | 2024-10-06 20:54 | External Medical Summary | Summary of Care ---
Author Name Unknown Organization [facility] Address [address] [facility] [place] [address] Phone [phone] Care Team Providers Care Insurance Administrator Name Role Phone Yady Craig MD Primary Care Provider Reason for Visit * Reason Onset Date Comments Appointment 09/21/2024 Printed for prov ider review Fax 09/21/2024 Pre-op clearance Encounter Details Date Type Department Care Team (Late st Contact Info) Description 09/21/2024 Telephone Family Practice [facility] [address] [place] [address] Yady Craig MD [address] [place] [address] Appointment (Printed for provider review);... Allergies Active Allergy Reactions Criticality Noted Date Comments Gabapentin High 04/03/2023 Other Reaction(s): fluid retention documented as of this encounter (statuses as of 09/29/2024) Medications CALCIUM CITRATE + 315-200 MG-IU OR [...] 2 Active Vitamin D (Ergocalciferol) 1.25 MG (39079 UT) Oral CapsuleIndications :Vitamin D deficiency Take [...] daily, PRN: as needed for pain, Pharmacy: [facility] #[id number] 4 Active oxyBUTYnin Chloride ER [...] as of this encounter (statuses as of 09/29/2024) Active Problems Problem Noted Date Diagnosed Date [...] syndrome 01/31/2015 Insomnia 06/21/2014 FERNANDEZ Confirmation Research Other*[id number] 07/2010 B12 malabsorption s/p gastric bypass 04/12/2003 Vitamin D deficiency documented as of this encounter (statuses as of 09/29/2024) Resolved Problems Problem Noted Date Diagnosed Date [...] given to patient at prior appointment. PANNICULITIS, [facility] SITE 08/07/200501/16 Localized adiposity 11/14/2004 02/09/20 08 Hypertrophy of breast 04/19/20042007 LOC PRIM [id number] 11/02/200306/17 Hypertension 04/12/2003 09/22/2009 Overview (09/22/2009): Modified per HTN Taxonomy. 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 Iron deficiency anemia 10/27 Closed Colles' fracture 11/18 Overview (08/03/2008): FRACTURE CLOSED N->Z RADIUS-KIARA'S Benign neoplasm of colon 09/2017 documented as of this encounter (statuses as of 09/29/2024) Immunizations Name Administration Dates Next Due COVID-19 [...] No 06/24/2024 Does the household have a [facility] source of income? 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 If PCP is agreeable to provide clearance without seeing pt for an appt, please write "patient cleared for surgery" with dated signature on pre-op clearance form and fax back to [phone]. Pt is scheduled for surgery 10.06.24. * [...] Would need clearance with Cardiology. [facility] [...] 08/09/2025 3:00 PM EDT Office Visit Cardiology, [facility] [address] [facility] [place] [id number] Mirta Prado CRNP [address] [place] [address] [place] [address] Scheduled Procedures Name Priority Associated Diagnoses [...] - PCV) 02/05/2024 07/28/2017 COVID-19 Vaccine ( season) 2024 09/22/2021, 03/09/2021, 02/16/2021 Influenza Vaccine [...] filedocumented as of this encounter Care Teams Insurance Administrator Relationship Specialty Start Date End Date Yady Craig MD [address] [place] [address] PCP - General Internal Medicine 3/23/23 documented as of this encounter
--- OUTSIDE RECORDS SUMMARY | 2024-10-06 20:54 | External Medical Summary | Summary of Care ---
Author Name Unknown Organization [facility] Address [address] [facility] [place] [address] Phone [phone] Care Team Providers Care Demolition Crane Operator Name Role Phone Yady Craig MD Primary Care Provider Encounter Details Date Type Department Care Team (Late st Contact Info) Description 09/22/2024 Result Scan Unspecified Department <No scans attached> Allergies Active Allergy Reactions Criticality Noted Date [...] 2 Active Vitamin D (Ergocalciferol) 1.25 MG (61387 UT) Oral CapsuleIndications :Vitamin D deficiency Take [...] daily, PRN: as needed for pain, Pharmacy: [id number] 4 Active oxyBUTYnin Chloride [...] right-karyn ed sciatica 10/27/2018 Iron deficiency anemia secon jeanmarie to inadequate dietary iron intake 08/01/2017 S/P gastric bypass 07/28/2017 Anxiety and depression 07/28/2017 Primary osteoarthritis of both knees 07/03/2017 Restless legs syndrome 01/31/2015 Insomnia 06/21/2014 FERNANDEZ Confirmation Research Other*[id number] 07/2010 B12 malabsorption s/p gastric bypass 04/12/2003 [...] given to patient at prior appointment. PANNICULITIS, [facility] SITE 08/07/200501/16 Localized adiposity 11/14/2004 02/09/20 08 Hypertrophy of breast 04/19/20042007 LOC PRIM [id number] 11/02/200306/17 Hypertension 04/12/2003 09/22/2009 Overview (09/22/2009): Modified per HTN Taxonomy. 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 Iron deficiency anemia 10/27 Closed Colles' fracture 11/18 Overview (08/03/2008): FRACTURE CLOSED N->Z RADIUS-COLLE'S Benign neoplasm of colon 09/2017 documented as [...] No 06/24/2024 Does the household have a re gular source of income? 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 Not on file Not on file documented as of this encounter Plan of Treatment Upcoming Encounters Date Type Department Care Team (Late st Contact Info) Description 08/09/2025 3:00 PM EDT Office Visit Cardiology, [facility] [address] [facility] [place] [address] Mirta Prado CRNP [address] [place] [address] [place] [address] Scheduled Procedures Name Priority [...] 2 - PCV) 02/05/2024 07/28/2017 COVID-19 Vaccine (4 - season) 2024 09/22/2021, 03/09/2021, 02/16/2021 Influenza [...] Not on filedocumented as of this encounter Procedures Procedure Name Priority Date/Time Associated Diagnosis Comments OUTSIDE LAB RESULTS 09/22/2024 documented in this encounter Results * OUTSIDE LAB RESULTS (09/22/2024) 09/22/2024 us No Physician Data Unknown LABORATORY Final Result documented in this encounter Care Teams Demolition Crane Operator Relationship Specialty Start Date End Date Yady Craig MD [address] [place] [address] PCP - General Internal Medicine 02/06/23 documented as of this encounter
--- OUTSIDE RECORDS SUMMARY | 2024-10-06 20:54 | External Medical Summary | Summary of Care ---
Author Name Unknown Organization [facility] Address [address] [facility] [place] [address] Phone [phone] Care Team Providers Care Refining Equipment Operator Name Role Phone Yady Craig MD Primary Care Provider Reason for Visit * Reason Onset Date Comments Appointment 09/21/2024 Printed for prov ider review Encounter Details Date Type Department Care Team (Late st Contact Info) Description 09/21/[address] [facility] [place] [address] [place] [address] Yady Craig MD [address] [place] [address] Appointment (Printed for provider review) Allergies Active Allergy Reactions Criticality Noted Date Comments Gabapentin High 04/03/2023 Other Reaction(s): fluid retention documented as of this encounter (statuses as of 09/28/2024) Medications CALCIUM CITRATE + 315-200 MG-IU OR [...] 2 Active Vitamin D (Ergocalciferol) 1.25 MG (69564 UT) Oral CapsuleIndications :Vitamin D deficiency Take [...] daily, PRN: as needed for pain, Pharmacy: [id number] 4 Active oxyBUTYnin [...] as of this encounter (statuses as of 09/28/2024) Active Problems Problem Noted Date Diagnosed Date [...] syndrome 01/31/2015 Insomnia 06/21/2014 FERNANDEZ Confirmation Research Other*[id number] 06/0 07/2010 B12 malabsorption s/p gastric bypass 04/12/2003 Vitamin D deficiency documented as of this encounter (statuses as of 09/28/2024) Resolved Problems Problem Noted Date Diagnosed Date [...] 08 Hypertrophy of breast 04/19/20042007 LOC PRIM [id number] 11/02/200306/17 Hypertension 04/12/2003 09/22/2009 Overview (09/22/2009): Modified per HTN Taxonomy. 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 Iron deficiency anemia 10/27 Closed Colles' fracture 11/18 Overview (08/03/2008): FRACTURE CLOSED N->Z RADIUS-COLLE'S Benign neoplasm of colon 09/2017 documented as of this encounter (statuses as of 09/28/2024) Immunizations Name Administration Dates Next Due COVID-19 [...] No 06/24/2024 Does the household have a [facility] source of income? 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 [facility] [...] 3:00 PM EDT Office Visit Cardiology, [facility] [place] [address] [facility] [place] [address] Mirta Prado CRNP [address] [place] [address] [place] [address] Scheduled Procedures Name Priority [...] filedocumented as of this encounter Care Teams Refining Equipment Operator Relationship Specialty Start Date End Date Yady Craig MD [address] [place] [address] PCP - General Internal Medicine 02/06/23 documented as of this encounter
--- OUTSIDE RECORDS SUMMARY | 2024-10-06 20:54 | External Medical Summary | Summary of Care ---
Author Name Unknown Organization [facility] Address [address] [facility] [place] [address] Phone [phone] Care Team Providers Care Smoke Tester Name Role Phone Yady Craig MD Primary Care Provider Reason for Visit * Reason Onset Date Comments Appointment 09/21/2024 Printed for prov ider review Fax 09/21/2024 Pre-op clearance Encounter Details Date Type Department Care Team (Late st Contact Info) Description 09/21/2024 Telephone Family Practice [facility] [address] [place] [address] Yady Craig MD [address] [place] [address] Appointment (Printed for provider review);... Allergies Active Allergy Reactions Criticality Noted Date Comments Gabapentin High 04/03/2023 Other Reaction(s): fluid retention documented as of this encounter (statuses as of 09/30/2024) Medications CALCIUM CITRATE + 315-200 MG-IU OR [...] 2 Active Vitamin D (Ergocalciferol) 1.25 MG (17092 UT) Oral CapsuleIndications :Vitamin D deficiency Take [...] as of this encounter (statuses as of 09/30/2024) Active Problems Problem Noted Date Diagnosed Date [...] syndrome 01/31/2015 Insomnia 06/21/2014 FERNANDEZ Confirmation Research Other*[id number] 07/2010 B12 malabsorption s/p gastric bypass 04/12/2003 Vitamin D deficiency documented as of this encounter (statuses as of 09/30/2024) Resolved Problems Problem Noted Date Diagnosed Date [...] given to patient at prior appointment. PANNICULITIS, [facility] SITE 08/07/200501/16 Localized adiposity 11/14/2004 02/09/20 08 Hypertrophy of breast 04/19/20042007 LOC PRIM [id number] 11/02/200306/17 Hypertension 04/12/2003 09/22/2009 Overview (09/22/2009): Modified per HTN Taxonomy. 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 Iron deficiency anemia 10/27 Closed Colles' fracture 11/18 Overview (08/03/2008): FRACTURE CLOSED N->Z RADIUS-KIARA'S Benign neoplasm of colon 09/2017 documented as of this encounter (statuses as of 09/30/2024) Immunizations Name Administration Dates Next Due COVID-19 [...] No 06/24/2024 Does the [facility] have a [facility]? 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 Form completed, please fax * Telephone Encounter - Sary Lomas LPN - 09/29/2024 3:01 PM EST Please advise-they need approval from PCP as well. * Telephone Encounter - Mary Baron OSA - 09/29/2024 12:10 PM EST [facility]/ [facility] calling to advise that they received pre-op clearance from Dr Watts in cardiology, but still need to get clearance from PCP. If PCP is agreeable to provide clearance without seeing pt for an appt, please write "patient cleared for surgery" with dated signature on pre-op clearance form and fax back to [phone]. Pt is scheduled for surgery 10.06.24. * [...] Would need clearance with Cardiology. Forwarded to [facility] to see if they can see patient [...] 08/09/2025 3:00 PM EDT Office Visit Cardiology, [facility] [address] [facility] [place] [address] Mirta Prado CRNP [address] [place] [address] Scheduled Procedures Name Priority [...] filedocumented as of this encounter Care Teams Smoke Tester Relationship Specialty Start Date End Date Yady Craig MD [address] [place] [address] PCP - General Internal Medicine 02/06/23 documented as of this encounter
--- OUTSIDE RECORDS SUMMARY | 2024-10-06 20:54 | External Medical Summary | Summary of Care ---
Author Name Unknown Organization [facility] Address [address] [facility] [place] [address] Phone [phone] Care Team Providers Care Burr Mill Operator Name Role Phone Yady Craig MD Primary Care Provider Reason for Visit * Reason Onset Date Comments Appointment 09/21/2024 Printed for prov ider review Fax 09/21/2024 Pre-op clearance Encounter Details Date Type Department Care Team (Late st Contact Info) Description 09/21/2024 Telephone Family Practice [facility] [address] [place] [address] Yady Craig MD [address] [place] [address] Appointment (Printed for provider review);... Allergies Active [...] 2 Active Vitamin D (Ergocalciferol) 1.25 MG (07159 UT) Oral CapsuleIndications :Vitamin D deficiency Take [...] PRN: as needed for pain, Pharmacy: [id number] 4 Active oxyBUTYnin Chloride [...] syndrome 01/31/2015 Insomnia 06/21/2014 FERNANDEZ Confirmation Research Other*[id number] 07/2010 B12 malabsorption s/p gastric bypass 04/12/2003 [...] given to patient at prior appointment. PANNICULITIS, [facility] SITE 08/07/200501/16 Localized adiposity 11/14/2004 02/09/20 08 Hypertrophy of breast 04/19/20042007 LOC PRIM [id number] 11/02/200306/17 Hypertension 04/12/2003 09/22/2009 Overview (09/22/2009): Modified [...] No 06/24/2024 Does the [facility] have a [facility]? 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 If PCP is agreeable to provide clearance without seeing pt for an appt, please write "patient cleared for surgery" with dated signature on pre-op clearance form and fax back to [phone]. Pt is scheduled for surgery 10.06.24. * [...] Would need clearance with Cardiology. Forwarded to [facility] to see if they can see patient [...] 08/09/2025 3:00 PM EDT Office Visit Cardiology, [facility] [address] [facility] [place] [address] Mirta Prado CRNP [address] [place] [address] Scheduled Procedures Name Priority [...] filedocumented as of this encounter Care Teams Burr Mill Operator Relationship Specialty Start Date End Date Yady Craig MD 132 [facility] [place] [address] PCP - General Internal Medicine 02/06/23 documented as of this encounter
--- OUTSIDE RECORDS SUMMARY | 2024-10-06 20:54 | External Medical Summary | Summary of Care ---
Author Name Unknown Organization [facility] Address [address] [facility] [place] [address] Phone [phone] Care Team Providers Care Analytical Sciences Director Name Role Phone Yady Craig MD Primary Care Provider Reason for Visit * Reason Onset Date Comments Appointment 09/21/2024 Printed for prov ider review Fax 09/21/2024 Pre-op clearance Encounter Details Date Type Department Care Team (Late st Contact Info) Description 09/21/2024 Telephone Family Practice [facility] [address] [place] [address] Yady Craig MD [address] [place] [address] Appointment (Printed for provider review);... Allergies Active [...] 2 Active Vitamin D (Ergocalciferol) 1.25 MG (21673 UT) Oral CapsuleIndications :Vitamin D deficiency Take [...] daily, PRN: as needed for pain, Pharmacy: [id number] 4 Active oxyBUTYnin [...] syndrome 01/31/2015 Insomnia 06/21/2014 FERNANDEZ Confirmation Research Other*[id number] 07/2010 B12 malabsorption s/p gastric bypass 04/12/2003 [...] given to patient at prior appointment. PANNICULITIS, [facility] SITE 08/07/200501/16 Localized adiposity 11/14/2004 02/09/20 08 Hypertrophy of breast 04/19/20042007 LOC PRIM [id number] 11/02/200306/17 Hypertension 04/12/2003 09/22/2009 Overview (09/22/2009): Modified [...] No 06/24/2024 Does the household have a [facility] source [facility]? 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 * Telephone Encounter - Mary Baron OSA - 09/29/2024 12:10 PM EST [facility] calling to advise that they received pre-op clearance from Dr Watts in cardiology, but still need to get clearance from PCP. If PCP is agreeable to provide clearance without seeing pt for an appt, please write "patient cleared for surgery" with dated signature on pre-op clearance form and fax back to [phone]. Pt is scheduled for surgery 10.06.24. * [...] Would need clearance with Cardiology. Forwarded to [facility] to see if they can see patient [...] 08/09/2025 3:00 PM EDT Office Visit Cardiology, [facility] 132 [facility] [place] [address] Mirta Prado CRNP [address] [place] [address] [place] [address] Scheduled Procedures Name Priority Associated Diagnoses Date/Ti [...] filedocumented as of this encounter Care Teams Analytical Sciences Director Relationship Specialty Start Date End Date Yady Criag MD [address] [place] [address] PCP - General Internal Medicine 02/06/23 documented as of this encounter
--- OUTSIDE RECORDS SUMMARY | 2024-10-06 20:54 | External Medical Summary | Summary of Care ---
Author Name Unknown Organization [facility] Address [address] [facility] [place] [address] Phone [phone] Care Team Providers Care Revenue Inspector Name Role Phone Yady Craig MD Primary Care Provider Reason for Visit * Reason Onset Date Comments Appointment 09/21/2024 Printed for prov ider review Encounter Details Date Type Department Care Team (Late st Contact Info) Description 09/21/2024 Telephone Family Practice [facility] [address] [place] [address] Yady Craig MD 132 [employer] [place] [address] Appointment (Printed for provider review) Allergies Active [...] 2 Active Vitamin D (Ergocalciferol) 1.25 MG (41091 UT) Oral CapsuleIndications :Vitamin D deficiency Take [...] daily, PRN: as needed for pain, Pharmacy: [id number] 4 Active oxyBUTYnin [...] syndrome 01/31/2015 Insomnia 06/21/2014 FERNANDEZ Confirmation Research Other*[id number] 06/0 07/2010 B12 malabsorption s/p gastric bypass [...] 08 Hypertrophy of breast 04/19/20042007 LOC PRIM [id number] 11/02/200306/17 Hypertension 04/12/2003 09/22/2009 Overview (09/22/2009): Modified [...] No 06/24/2024 Does the household have a [facility] source of income? 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 * Telephone Encounter - Lory Jani RN - 09/24/2024 3:37 PM EST Last evaluation 07/29/2024. Quiana, can you please discuss with Dr. Watts and advise. * Telephone Encounter - Yady Craig MD - 09/22/2024 3:19 PM EST Patient with complex cardiac history, followed by EP. Would need clearance with Cardiology. [facility] [...] 08/09/2025 3:00 PM EDT Office Visit Cardiology, [facility] 132 [facility] [place] [address] Mirta Prado CRNP [address] [place] [address] [place] [address] Scheduled Procedures Name Priority [...] filedocumented as of this encounter Care Teams Revenue Inspector Relationship Specialty Start Date End Date Yady Craig MD 132 [place] [address] PCP - General Internal Medicine 02/06/23 documented as of this encounter
--- OUTSIDE RECORDS SUMMARY | 2024-10-06 20:54 | External Medical Summary | Continuity of Care Document ---
Author Name Unknown Organization [id number] Address [address] [place] [id number] Care Team Providers Care Propagator Laborer Name Role Phone Yady Craig Louie Primary Care Physician [phone] [id number] Date[facility]s): 09/22/24 - 09/22/24 [facility] [address] [place] [address] [facility] [address] [place], [place] [id number] Encounter Diagnosis Left knee DJD(Discharge Diagnosis) - 09/22/24 Discharge Disposition: Home or Self Care Attending Physician: AYESHA Diaz, Mariangel Referring Physician: MD Alberto, Epifanio A Allergies, Adverse Reactions, Alerts Substance Criticality Severity Reaction Reaction Severity Status gabapentin Unable to assess criticality Moderate Ankle swelling Active Medications calcium (as carbonate)-vitamin D 250 mg-125 intl units oral tablet Start: 06/13/17 7:58:00 AM EDT Start Date: 06/13/17 Status: Ordered CeleBREX 200 mg oral capsule Start: 08/02/24 4:55:00 PM EDT, 1 cap, PO, Daily, Disp# 60 cap, Refills: 1, PRN: as needed for pain,Pharmacy: [id number] Start Date: 08/02/24 Status: Ordered cyanocobalamin 1000 mcg/mL injectable solution Start: 06/13/17 7:58:00 AM EDT Start Date: 06/13/17 Status: Ordered Euflexxa 10 mg/mL intra-articular solution Start: 05/08/24 2:14:00 PM EDT, 20 mg =, intra-articular, q7days, Disp# 12 mL, Refills: 0, B/L KNEE DJD M17.0, Note to Pharmacy: 6 syringes for B/L knees. Please ship to physician's office: Tashia Zaire Alberts. [address] [place] [address], other Start Date: 05/08/24 Stop Date: 05/29/24 Status: Ordered Iron 100 Plus Start: 06/13/17 7:59:00 AM EDT Start Date: 06/13/17 Status: Ordered naproxen 500 mg oral tablet See Instructions, Disp# 20 tab, Refills: 2, take 1 tablet twice a day x10 days as needed for pain. take with food., Pharmacy: [id number] Start Date: 02/20/22 Status: Ordered oxyBUTYnin 10 mg/24 hr oral tablet, extended release Start: 09/22/24 2:43:00 PM EST Start Date: 09/22/24 Status: Ordered rOPINIRole 0.25 mg oral tablet Start: 06/13/17 7:58:00 AM EDT Start Date: 06/13/17 Status: Ordered rOPINIRole 1 mg oral tablet Start: 09/22/24 2:42:00 PM EST, 1 tab, PO, tid Start Date: 09/22/24 Status: Ordered sertraline 100 mg oral tablet Start: 06/13/17 7:58:00 AM EDT Start Date: 06/13/17 Status: Ordered Mental Status 09/22/24 Barriers to Learning one year None evide nt Mandatory Health Literacy Documentation Yes Health Literacy Communication Barriers N ever Primary Language Bhutanese Problem List Condition Confirmation Course Effective Dates Status H ealth Status Informant Right ankle pain Confirmed Active Knee effusion, right Confirmed Active Bilateral hand pain Confirmed Active Low back pain Confirmed Active Left knee DJD Confirmed Active Right knee DJD Confirmed Active Right wrist pain Confirmed Active Left knee pain Confirmed Active Right knee pain Confirmed Active Restless leg syndrome Confirmed Active Right sacral radiculopathy Confirmed Active Foraminal stenosis of lumbar region Confirmed Active Syncope Confirmed Active Diagnosis Diagnosis Type Effective Dates Health Status Cl inical Service Informant Left knee DJD Discharge Diagnosis 09/22/24 Procedures Procedure Date Related Diagnosis Body Site Status Abdominal hysterectomy 1 Completed Abdominal panniculus 2, 3 Completed Breast 4 Completed Cardiac monitoring 5 Comp leted Gallbladder 6 Completed Gastric bypass operation 7 Completed Tonsillectomy 8 Completed 1WITH APPENDECTOMY 1983 3WITH BREAST LIFT 4breast lift abdominoplasty and thigh plasty 5[facility] [id number] Social History Social History Type Response Smoking Status Never smoked cigaret jennifer Sex Female Sex Representation Female (finding) Patient Care team information Care Team Personnel Name: MD Rafa, Yady Palma Position: Referring Member Role: Primary Care Provider Address: [address] [place] [address] [place] Care Team Related Persons Name: CLEMENT HOU
--- OUTSIDE RECORDS SUMMARY | 2024-10-06 20:54 | External Medical Summary | Summary of Care ---
Author Name Unknown Organization [facility] Address [address] [facility] [place] [address] Phone [phone] Care Team Providers Care Office Cleaner Name Role Phone Yady Craig MD Primary Care Provider Reason for Visit * Reason Onset Date Comments Pre-op Clearance 09/21/2024 Dr. Watts pat ient Encounter Details Date Type Department Care Team (Late st Contact Info) Description 09/21/2024 Telephone Cardiology, [facility] [address] [facility] [place] [address] Kristie Watts, [address] [facility] [place] [address] Pre-op Clearance (Dr. 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 PANNICULITIS, [facility] SITE 08/07/200501/16 Localized adiposity 11/14/2004 02/09/20 08 Hypertrophy of breast 04/19/20042007 LOC PRIM [id number] 11/02/200306/17 Hypertension 04/12/2003 09/22/2009 Overview (09/22/2009): Modified [...] 06/24/2024 Does the household have a re lar source of income? 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 CHERELLE Sevilla * Telephone Encounter - Trevin Espinoza OSA - 09/27/2024 8:43 AM EST Person calling: Brigitte Trujillo Relationship to patient: self Phone/Fax to return call: [phone] Reason for call(brief): Pre Op Clearance Pharmacy: N/A Provider Name:Dr. Watts Detailed message to office: Patient calling back to check on the status of this request. Patient advised that she was seen by Dr. Watts on 07/27/24 and was ok to be proceed with surgery? Thank You, Trevin Ext [phone] * Telephone Encounter - Vania Ortiz OSA - 09/24/2024 2:13 PM EST Person calling: Leticia [facility] ortho Relationship to patient: [facility] orth[facility] Phone/Fax to return call: [phone] Reason for call(brief): pre-op clearance Pharmacy: n/a Provider Name:kiersten Detailed message to office:patient having surgery with [facility] ortho on 10/06/24 for L TKA. Theyare looking for advise if this needs to be postponed, and if a referral can be placed by Aircraft Cylinder Mechanic for patient to see general if clearance is needed. Did offer general cardiology but Leticia is unsure if patient will travel. Please advise Thank you SESAR Almanzar * Telephone Encounter - Edel Lamb CMA - 09/21/2024 2:40 PM EST Fax received from [facility] regarding L TKA scheduled with Dr. Dominguez 10/06/2024 at [facility]. Preferred anesthesia: general/block Patient scheduled for pre-op appointment at [facility] Orth[facility] & PAT appointment at [facility] 09/22. (p): / (f): Patient still awaiting insurance auth for loop replacement. Please advise if knee surgery will needto be postponed pending cardiac procedure. documented in this encounter Plan of Treatment Upcoming Encounters Date Type Department Care Team (Late st Contact Info) Description 08/09/2025 3:00 PM EDT Office Visit Cardiology, [facility] [address] [place] [address] Mirta Prado CRNP [address] [place] [address] Scheduled Procedures Name Priority [...] filedocumented as of this encounter Care Teams Office Cleaner Relationship Specialty Start Date End Date Yady Craig MD [address] [place] [address] PCP - General Internal Medicine 02/06/23 documented as of this encounter
[2024-10-06] MEDS: CALCIUM CARBONATE 1250MG TAB PO SCH (21:21)
[2024-10-07 03:23] VITALS: TEMP 97.9
[2024-10-07 06:49] LABS: Hemoglobin 11.1 g/dl (12.0-16.0); Mean Corpuscular Hemoglobin 26.4 pg (25.0-34.0); Mean Corpuscular Hgb Conc 32.6 g/dL (32.0-36.0); Mean Corpuscular Volume 80.8 fL (80.0-100.0); Mean Platelet Volume 9.2 fL (9.4-12.4); Platelet Count 321 K/uL (130-400); RDW Coefficient of Variation 13.6 % (11.5-14.5); Red Blood Count 4.21 M/uL (4.20-5.40); White Blood Count 7.79 K/ul (4.8-10.8)
[2024-10-07 06:57] LABS: BUN Creatinine Ratio 28.8 (10-20); Calcium 8.7 mg/dl (8.6-10.3); Creatinine Clr Calc Pharmacy 72.7 ml/min; Potassium 4.1 mmol/L (3.5-5.1)
--- NOTE | 2024-10-07 07:28 | Orthopedic Progress Note ---
Date of Service October 07, 2024 Assessment & Plan (1) Osteoarthritis, knee: Plan: POD #1 s/p L TKA, doing as well as expected. Resume diet. WBAT with walker. OOB to chair. Continue pain control. Complete 24 hrs Abx. DVT prophylaxis: TEDs 3 weeks, foot pumps while in hospital, ASA 81 mg BID for 6 weeks. PT/OT. D/C planning home with HH. Dressing to be changed POD 2-3 to Silverlon type dressing. Admission and Anticipated Discharge Date Admission Date: October 06, 2024 Subjective Doing well,has been up to the bathroom by herself. Physical Exam Physical Exam: LLE: Sensation to light touch intact, Wiggling toes. BCR < 2 sec. Dressing is clean, dry, intact. Results & Data Vital Signs (Past 12 Hours) Vital Signs Temp Pulse Resp BP Pulse Ox O2 Del Method 10/07/24 03:22 36.6 C 77 18 116/75 98 Room Air 10/06/24 23:03 36.5 C 79 16 126/81 94 Room Air 10/06/24 19:48 36.7 C 70 18 122/79 98 Room Air Laboratory Results Laboratory Results WBC 7.79 K/ul (4.8-10.8) 10/07/24 06:04 RBC 4.21 M/uL (4.20-5.40) 10/07/24 06:04 Hgb 11.1 g/dl (12.0-16.0) L 10/07/24 06:04 Hct 34.0 % (37.0-47.0) L 10/07/24 06:04 MCV 80.8 fL (80.0-100.0) 10/07/24 06:04 MCH 26.4 pg (25.0-34.0) 10/07/24 06:04 MCHC 32.6 g/dL (32.0-36.0) 10/07/24 06:04 RDW Std Deviation 40.0 fL (36.4-46.3) 10/07/24 06:04 RDW Coeff of Rolando 13.6 % (11.5-14.5) 10/07/24 06:04 Plt Count 321 K/uL (130-400) 10/07/24 06:04 MPV 9.2 fL (9.4-12.4) L 10/07/24 06:04 Sodium 138 mmol/L (136-145) 10/07/24 06:04 Potassium 4.1 mmol/L (3.5-5.1) 10/07/24 06:04 Chloride 106 mmol/L (98-107) 10/07/24 06:04 Carbon Dioxide 27 mmol/L (21-32) 10/07/24 06:04 Anion Gap 5 (3-11) 10/07/24 06:04 BUN 19 mg/dl (6-23) 10/07/24 06:04 Creatinine 0.66 mg/dl (0.6-1.2) 10/07/24 06:04 Est Cr Clr Drug Dosing 72.7 ml/min 10/07/24 06:04 eGFR 97.29 10/07/24 06:04 BUN/Creatinine Ratio 28.8 (10-20) H 10/07/24 06:04 Glucose 109 mg/dl (70-99(Fasting)) H 10/07/24 06:04 Calcium 8.7 mg/dl (8.6-10.3) 10/07/24 06:04 Impressions Knee X-Ray 10/06/24 09:52 XR knee LT 1 or 2V routine CLINICAL HISTORY: Postoperative evaluation. COMPARISON: Left knee radiographs June 10, 2024. FINDINGS: Alignment of the total left knee arthroplasty is anatomic. There is no periprosthetic fracture or unexpected radiopaque foreign body. IMPRESSION: Expected findings following total left knee arthroplasty. ACT 112: Negative or not required by law. Electronically signed by: Brodie Samano M.D. 10/06/2024 10:25 AM
[2024-10-07 07:50] VITALS: BP 115/74; PULSE 82; RESP 16; O2SAT 95
[2024-10-07] MEDS: MULTIVITAMIN TAB PO SCH (08:01)
[2024-10-07] MEDS: rOPINIRole HCL 1 MG TABLET PO SCH (08:02)
[2024-10-07] MEDS: OXYBUTYNIN CHLORIDE XL 5 MG TABCR PO SCH (08:02)
[2024-10-07] MEDS: INFLUENZA VACC TS2024-25(65y+)/PF (IIV3) 0.5mL Syr IM ONE (11:18)
--- NOTE | 2024-10-07 11:48 | Discharge Summary ---
Date of Service October 07, 2024 Principal Diagnosis s/p left total knee arthroplasty Discharge Data Allergies Allergy/AdvReac Type Severity Reaction Status Date / Time gabapentin AdvReac Fluid Verified 10/06/24 05:41 retention Procedures Performed Operation Date: 10/06/24 07:00 Actual Procedures p Left Total Knee Arthroplasty(Left) - Epifanio Dominguez MD Hospital Course (1) Osteoarthritis, knee: Patient underwent a left total knee arthroplasty on 10/06/[address] Dominguez which was uncomplicated. She was observed in the hospital overnight and evaluated the following morning. She is doing well overall and feels that she wants to go home. Pain is well-controlled. Vital signs are stable. She was evaluated by physical therapy and Occupational Therapy and cleared for home, will participate with home health therapy for 2 weeks followed by formal physical therapy. Her postop labs were reviewed showing no leukocytosis, minimal anemia hemoglobin 11.1 likely secondary to acute blood loss anemia from surgery. No other concerns on her labs were noted. Her postoperative x-ray demonstrated expected findings. She will take Tylenol and oxycodone for pain control. PDMP checked, no concerns. Aspirin 81 mg twice daily for 6 weeks for DVT prophylaxis. TEDs for 3 weeks. Supplement with iron and vitamin C over the next 2 weeks. She will use walker at home. She has an appointment scheduled tomorrow in our office for a dressing change. She will leave the dressing in place until then. She was instructed to call the office with any concerns. All questions were answered. Total Time Total Time Spent Total Time Spent (In Minutes): 15 Discharge Plan Discharge Items Patient Disposition: Home - Home Health Services Reason For Visit: Left Knee Osteoarthritis Discharge Diagnosis: s/p left total knee arthroplasty Condition on Discharge: Good Activity: Per Instructions section Non-emergency contact: Surgeon Call non-emergency contact if: your pain is not controlled, your temperature is above 101 and your wound has increased drainage Follow-up/Referrals: Ranjit Molina PA-C [Physician Furnace Charging Machine Operator] - 10/08/24 1:45 pm Yady Craig MD [Primary Care Provider] - Diet: Regular Addtl Attending Provider Instructions: POST OPERATIVE DISCHARGE INSTRUCTIONS Pain Control Please take the follow medications for pain control, as well as icing and elevating your operative extremity. Pain after surgery is to be expected. We may not be able to take away all of your pain, but the goal is to make your pain manageable - Extra strength Tylenol 1,000mg (2 tabs) every 8 hours - Oxycodone 5-10mg (1-2tabs) every 4-6 hours as needed DVT Prophylaxis With any surgery, you are at increased risk for blood clots. Please take the follow measures to prevent blood clots and read the warning signs to watch for. Please take the follow anticoagulant: Aspirin 81mg twice a day for 6 weeks If you were given MILLIE compression stockings, these are to be worn on both legs for 18-20 hours daily for 3 weeks Warning signs: Calf pain, lower extremity swelling, numbness/tingling, skin discoloration, increased pain, shortness of breath, chest pain. Please contact our office if you experience any of these symptoms or call 911 if you are having trouble breathing. Ice Ice your operative site at least 5 times a day for 15-30 minutes at a time, for the first three days, then as needed. This will help to reduce swelling and pain. Make sure you have a thin cloth between the ice or cooling unit and your skin to prevent sal bite. This is especially important if you received a nerve block. Diet/Nausea/Vomiting Start by drinking clear liquids and eating crackers. If you can tolerate this, then you may resume your normal diet. If you feel nauseated or vomit, take Zofran/ondansetron (if prescribed). Please call our office if you have intractable nausea or vomiting, or, if after hours, you may go to the Emergency Room for help. Surgical Dressing Please leave on any dressing until you are seen by either PT or PA for your post-operative appointment, unless you are otherwise instructed. If there are any issues with your dressing please give our office a call. Weight bearing, Range of Motion, Activity You will be weight bearing as tolerated on your operative site. You may use crutches or walker to assist in ambulation. Physical therapy You will do your rehab for the first two weeks with home health. Then you will begin outpatient physical therapy. It is very important you follow your rehab protocol and do your exercises as instructed by your provider and physical therapist. Wound care and showering We will inspect your wound at your first post-operative visit. It is normal to see some dried blood on the dressing. Do not remove your dressing, paper strips or sutures yourself unless otherwise instructed. Showering is allowed post op day 3. Do not scrub or remove any dressings, unless you are otherwise instructed. Once your dressing is changed in the office to the water-resistant dressing. You can shower with this on as long as all the edges are in tact. To promote wound healing, we recommend taking a multi-vitamin, or taking 500mg Vitamin C supplement twice a day for two weeks and 325mg Iron supplement twice a day for two weeks. Constipation Constipation is a common side effect of narcotic pain medication, dehydration after surgery and iron supplement (if you were instructed to begin that after surgery). We recommend purchasing an krvy-kst-tbujgjy laxative such as Milk of Magnesia, Colace, Dulcolax, Miralax or Senna from a local pharmacy, and taking it as instructed. Stay hydrated and you may increase your fiber in your diet as well. Call our clinic if any questions. Driving You may not drive while taking narcotic pain medication or while in a cast, splint, sling or brace. Driving will be discussed at your first post op appointment Return to Work Your return to work depends on what surgery was done and what type of work you do. Please bring any paperwork your employer needs completed to your first post-operative visit. Also, bring a description of your job duties, as this helps us to understand what risks you may face at work. Travel Avoid long distance travel (greater than 1 hour) in airplanes and cars for the first 6 weeks after surgery. Follow-up Please attend your post operative appointments as scheduled. At these appointments, we may do dressing change and remove any sutures/jerman/Zip-line 10-14 days after your surgery. If you do not know your post operative appointment dates or times please call the office at [phone] When to call the office It is normal to have swelling and bruising in the limb that was operated on. This will improve with time. It is also normal to have fevers for the first 2 days after surgery. Reasons you should call your doctor include: Uncontrolled pain; Nausea, vomiting, or constipation that does not improve with medication; Fevers over 101.5, chills, sweats; Drainage or bleeding from the wound; Foul odor; Spreading areas of redness; calf pain or swelling, shortness of breath, chest pain; Any other concerns You may call the office at [phone]. If it is a medical emergency please call 911. Pending Studies at Discharge: No Stand-Alone Forms: [facility] Medications and DC Order Prescriptions: New acetaminophen [Tylenol Extra Strength] 500 mg Tablet 1,000 mg PO Q8 Qty: 30 0RF ascorbic acid (vitamin C) [Vitamin C] 500 mg Tablet 500 mg PO BIDM Qty: 30 0RF docusate sodium 100 mg Capsule 100 mg PO BID Qty: 30 0RF oxycodone 5 mg Tablet 5 - 10 mg PO Q4H PRN (Reason: pain) Qty: 18 0RF Rx Instructions: 5mg (1 tab) for pain 1-5 10 mg (2 tabs) for pain 6-10) ferrous gluconate 324 mg (38 mg iron) Tablet 324 mg PO BIDM Qty: 30 0RF Continued cyanocobalamin (vitamin B-12) 1,000 mcg/mL solution 0 mcg IM MONTHLY Patient Comments: plans for today 09/21/24 cholecalciferol (vitamin D3) [Vitamin D3] 125 mcg (5,000 unit) Tablet 250 mcg PO WK Patient Comments: mondays multivitamin Tablet 1 tab PO QAM ropinirole 1 mg Tablet 1 mg PO QAM calcium 600 mg Capsule 600 mg PO HS ropinirole 1 mg Tablet 2 mg PO HS Rx Instructions: administer 1-3 hours before bedtime oxybutynin chloride 10 mg Tablet Extended Release 24hr 10 mg PO QAM Held celecoxib [Celebrex] 200 mg Capsule 200 mg PO HS Hold Instructions: Resume on 11/18/24. Discontinued acetaminophen [Tylenol Extra Strength] 500 mg Tablet 1,000 mg PO UD PRN (Reason: Pain) Admission Data Admit Date/Time: 10/06/24 09:52 Attending Provider: Epifanio Dominguez Admit Provider: Epifanio Dominguez Primary Care Provider: Yady Craig Other Interventions: Discharge Summary Assessment (RN) Last Done: 10/07/24 11:23
[2024-10-11] MEDS ORDERED: CHOLECALCIFEROL 125 MCG (5,000 UNITS) TAB PO SCH (09:00)
== END 2024-10-07 12:37 | disposition home health service (06) ==
LOC: 3E 04:55 → ASU 04:55

== ENCOUNTER 2024-11-30 06:53 | Observation (INO) ==
--- NOTE | 2024-11-22 09:29 | Anesthesiology Consultation ---
Date of Service November 22, 2024 Assessment & Plan (1) Encounter for pre-operative examination: - Infectious disease screening: Per assessment on 11/22/24- No known recent infectious disease contacts or current infectious disease symptoms. - Outpatient joint assessment: Pt currently scheduled for inpatient pathway. If surgeon requests review for outpatient joint pathway, patient is an acceptable candidate for outpatient joint program from anesthesia standpoint pending surgeon's office assessment that patient is motivated, has good support and completes Same Day Joint Program preop requirements. - Cardiology visit (07/27/24): "Pt returns to EP for remote F/Q due to loop at OVI.. Syncope s/p LINQ insertion 02/2021.. Junctional bradycardia.. S/p gastric bypass surgery.. Pt Might need a right knee replacement.. Pt had plastic surgery on her thighs to remove the extra skin.. Post op she had hypertensive urgency with spilling troponins and had a cardiac cath and was told everything was fine.. Recommend loop insertion explant.. Recommend echo.." > Insurance denial for insertion of new loop device per communications notes (cardio aware). Echo obtained 07/29/24. - Cardiology preop response prior to 09/2024 Left TKA: Due to insurance issues, loop recorder has not been able to be replaced yet due to current device at PLACEMENT COORDINATOR (recommended replacement time). Recent loop report received/reviewed by cardio. Cardiology note (Radhika Samano [facility] cardiology/EP) 09/28/24: "Per Dr Watts, pt does not need to post pone knee surgery. Per Dr Watts, pt is cleared from a cardiac standpoint for Left total knee replacement with Dr. Dominguez on 10/06/2024 ." Confirmed note received by surgeon's office and nothing further needed from t heir perspective. - S/P Left TKA (10/06/24): [facility] at [facility]. No issues noted per post-op anesthesia progress note. - Patient acceptable risk for surgery pending surgeon-ordered PCP preop evaluation (JAYNE Navarro, appt 11/24). Chart Review Chart Review: Patient NOT seen in Pre Admission Testing History Surgery Operation Date: 11/30/24 09:05 Proposed Procedures p Right Total Knee Arthroplasty - Epifanio Dominguez MD Height/Weight Height: 5 ft 1 in Weight: 61.235 kg Allergies Allergy/AdvReac Type Severity Reaction Status Date / Time gabapentin AdvReac Fluid Verified 11/22/24 07:33 retention Medications Home Medications Medication Instructions Recorded Confirmed Last Taken multivitamin 1 tab PO QAM 03/04/19 11/22/24 10/05/24 09:00 ropinirole 1 mg tablet 1 mg PO QAM 03/04/19 11/22/24 10/05/24 09:00 cholecalciferol (vitamin D3) 125 250 mcg PO WK 02/29/20 11/22/24 10/04/24 09:00 mcg (5,000 unit) tablet (Vitamin D3) cyanocobalamin (vitamin B-12) 0 mcg IM MONTHLY 02/29/20 11/22/24 09/29/24 21:00 1,000 mcg/mL injection solution calcium 600 mg capsule 600 mg PO HS 09/21/24 11/22/24 10/05/24 09:00 celecoxib 200 mg capsule (Celebrex) 200 mg PO HS 09/21/24 11/22/24 09/22/24 oxybutynin chloride 10 mg 10 mg PO QAM 09/21/24 11/22/24 10/05/24 22:00 tablet,extended release 24 hr ropinirole 1 mg tablet 2 mg PO HS 09/21/24 11/22/24 10/05/24 21:00 acetaminophen 500 mg tablet 1,000 mg (2 x 500 mg) PO Q8 #30 10/07/24 11/22/24 Unknown (Tylenol Extra Strength) tabs ascorbic acid (vitamin C) 500 mg 500 mg PO BIDM #30 tabs 10/07/24 11/22/24 Unknown tablet (Vitamin C) ferrous gluconate 324 mg (38 mg 324 mg PO BIDM #30 tabs 10/07/24 11/22/24 Unknown iron) tablet Past Medical History Medical History History of colon polyps History of depression Situational after loss of mother History of high blood pressure Single episode 2021 post sx complication (thighplasty) per patient History of syncope (2019) x3 incidents in 2019 (none since) Loop recorder placed Follows with S EP/Dr. Watts Osteoarthritis Overactive bladder Restless leg syndrome Past Family History Family History Mother Family history of diabetes mellitus Uncle Family hx of colon cancer Past Surgical History Surgical History H/O gastric bypass 2002 History of abdominoplasty History of appendectomy History of breast lift History of cardiac cath 1992- no stents History of cholecystectomy History of colonoscopy History of dilatation and curettage History of facelift Per records History of herniorrhaphy History of laparoscopy History of left knee replacement History of plastic surgery (2021) Thighplasty Following sx drain stopped working and both legs opened up ("had to heal openly") History of tonsillectomy History of tooth extraction History of total abdominal hysterectomy and bilateral salpingo-oophorectomy Implantable loop recorder present Needs new battery/insurance denying due to only hx of syncope was in 2019 per pt Social History Smoking Status: Former smoker tobacco type: cigarettes Smoking cigarettes per day: LESS THAN 10 CIG DAILY Do You Dip or Chew Tobacco: No Smoking End Date: ~ Hx Alcohol Use: No Hx Substance Use: No substance use type: does not use Testing Electrocardiogram Date: 07/27/24 Sinus bradycardia 57 bpm. "Otherwise normal ECG." No significant change compared to 05/23/2022 per center human resources manager comparison. Chest X-Ray Date: 09/22/24 FINDINGS: The lungs are clear and well-expanded with no pulmonary infiltrate or pleural effusion. The cardiomediastinal silhouette is within normal limits. Prominence of the aortic arch is seen with arteriosclerotic calcification. Loop recorder device is seen overlapping the cardiac silhouette. Mild spondylosis in the visualized thoracic spine. IMPRESSION: 1. No acute cardiopulmonary disease. 2. Arteriosclerotic changes in the thoracic aorta Echocardiogram Date: 07/29/24 LVEF 60 to 64%. LV wall motion is normal. Grade 1 diastolic dysfunction. Mild MR. No LV mural thrombus. Stress Test Date: 02/23/21 Stress echo is negative for inducible ischemia. No arrhythmias. Above average exercise tolerance for age. 10.1 METS. 95% MPHR. At rest, normal LV chamber size wall thickness. EF 60 to 65%. Grade 1 diastolic dysfunction. No significant valvular pathology. Other Testing Loop Recorder report Date: 08/02/24 0% AT burden. No new clinically significant arrhythmias oversensing of T waves. Current battery status: PLACEMENT COORDINATOR. Battery depletion rate appears normal. Presenting rhythm SR. "This is a normal remote diagnostic device check"
[~2024-11-30 06:53] MED LIST changes: +BUPIVACAINE 0.25% PF 30 ML VIAL ONE; +BUPIVACAINE 0.5 % 5 MG/1 ML PF 10ML VIAL ONE; -CHOL1000 PO; -CYNI1000 INJ; -IOPAMIDOL INJ 61% 15 ML VIAL ONE; -LIDOCAINE HCL 1% MPF 5 ML VIAL ONE; -ROPI0.5T15 PO; -SODIUM CHLORIDE 0.9% INJ 10 ML VIAL ONE
--- OUTSIDE RECORDS SUMMARY | 2024-11-30 07:00 | External Medical Summary ---
Author Name Unknown Address Unknown Organization K[facility] [place] [address] [facility] [address] Laboratory Report Ordering Provider Test Date Status RICCARDO TEJADA 11/24/2024 16:12:[address] Dominguez [facility] Observation Date Value Abnormality Reference (Units ) Status RBC, Urine 11/24/2024 16:12:21 0-2 0-2 (/HPF) Final WBC, Urine 11/24/2024 16:12:21 3-5 Abnormal 0-2 (/HPF) Final Bacteria [#/area] in Urine sediment by Microscopy high power field 11/24/2024 16:12:21 0-25 0-25 (/HPF) Final Performing Location [facility] [place] [address] [facility] [address]
--- OUTSIDE RECORDS SUMMARY | 2024-11-30 07:00 | External Medical Summary ---
Author Name Unknown Address Unknown Organization [id number]:[place] [facility] [place] [address] [facility] [address] Laboratory Report Ordering Provider Test Date Status RICCARDO TEJADA 11/24/2024 16:12:[address] Dominguez Miguelangel [facility] Ortho Observation Date Value Abnormality Reference (Units ) Status Color of Urine by Auto 11/24/2024 16:12:21 Light Yellow Colorless, Light Yellow, Yellow, Dark Yellow Final Clarity, Urine 11/24/2024 16:12:21 Clear Clear Final Glucose [Mass/volume] in Urine by Automated test strip 11/24/2024 16:12:21 Negative Negative (mg/dL) Final Bilirubin.total [Presence] in Urine by Automated test strip 11/24/2024 16:12:21 Negative Negative Final Ketones [Mass/volume] in Urine by Automated test strip 11/24/2024 16:12:21 Negative Negative (mg/dL) Final Specific gravity, Urine 11/24/2024 16:12:21 1.014 1.003-1.030 Final Hemoglobin [Presence] in Urine by Automated test strip 11/24/2024 16:12:21 Negative Negative Final pH, Urine 11/24/2024 16:12:21 5.5 5.0-7.5 (Units) Final Protein [Mass/volume] in Urine by Automated test strip 11/24/2024 16:12:21 Negative Negative (mg/dL) Final Urobilinogen [Mass/volume] in Urine by Automated test strip 11/24/2024 16:12:21 Normal Normal (mg/dL) Final Nitrite [Presence] in Urine by Automated test strip 11/24/2024 16:12:21 Positive Abnormal Negative Final Leukocyte esterase [Presence] in Urine by Automated test strip 11/24/2024 16:12:21 Small Abnormal Negative Final Performing Location [place] [facility] [place] [address] [facility] [address]
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
--- OUTSIDE RECORDS SUMMARY | 2024-11-30 07:00 | External Medical Summary | Continuity of Care Document ---
Author Name Unknown Organization [id number] Address [address] [place] [id number] Care Team Providers Care Sagger Soak Name Role Phone Yady Craig Louie Primary Care Physician [phone] [id number] Date(s): 11/19/24 - 11/19/24 [facility] [address] [place] [id number] [facility] [address] [place], [place] [phone] Encounter Diagnosis Right knee DJD(Discharge Diagnosis) - 11/19/24 Discharge Disposition: Home or Self Care Attending [...] Refills: 1, PRN: as needed for pain,Pharmacy: [id number] Start Date: 08/02/24 Status: [...] physician's office: Tashia [facility] [address] [place] [address], other Start Date: 05/08/24 Stop Date: 05/29/24 Status: Ordered Iron 100 Plus Start: 06/13/17 7:59:00 AM EDT Start Date: 06/13/17 Status: Ordered naproxen 500 mg oral tablet See Instructions, Disp# 20 tab, Refills: 2, take 1 tablet twice a day x10 days as needed for pain. take with food., Pharmacy: [id number] Start Date: 02/20/22 Status: [...] Start Date: 06/13/17 Status: Ordered Mental Status 11/19/24 Barriers to Learning one year None evide nt Mandatory Health Literacy Documentation Yes Health Literacy Communication Barriers N ever Primary Language Armenian Problem List Condition Confirmation Course Effective Dates Status H ealth Status Informant Right ankle pain Confirmed Active Knee effusion, right Confirmed Active FH: total knee replacement Confirmed Active Bilateral hand pain Confirmed Active Status post total left knee replacement Confirmed Active Low back pain Confirmed Active Right knee DJD Confirmed Active Right wrist pain Confirmed Active Left knee pain Confirmed Active Right knee pain Confirmed Active Restless leg syndrome Confirmed Active Right sacral radiculopathy Confirmed Active Foraminal stenosis of lumbar region Confirmed Active Syncope Confirmed Active Diagnosis Diagnosis Type Effective Dates Health Status Cl inical Service Informant Right knee DJD Discharge Diagnosis 11/19/24 Non-Specified Procedures Procedure Date Related Diagnosis Body Site Status Abdominal hysterectomy 1 Completed Abdominal panniculus 2, 3 Completed Breast 4 Completed Cardiac monitoring 5 Comp leted Gallbladder 6 Completed Gastric bypass operation 7 Completed Tonsillectomy 8 Completed 1WITH APPENDECTOMY 1983 3WITH BREAST LIFT [facility] [id number] Vital Signs Most recent to oldest [Reference Range]: 1 Height 156 cm (11/19/24 9:55 AM) Patient Weight 62.3 kg (11/19/24 9:55 AM) Body Mass Index 25.6 kg/m2 (11/19/24 9:55 AM) Temperature [36.5-37.9 DegC] 36.1 DegC *LOW* (11/19/24 9:55 AM) Blood Pressure 128/78mmHg (11/19/24 9:55 AM) Social History Social History Type Response Smoking Status Never smoked cigaret jennifer Sex Female Sex Representation Female (finding) Patient Care team information Care Team Personnel Name: MD Rafa, Yady Palma Position: Referring Member Role: Primary Care Provider Address: [address] [place] [address] [place] Care Team Related Persons Name: CLEMENT HOU
--- OUTSIDE RECORDS SUMMARY | 2024-11-30 07:00 | External Medical Summary | Continuity of Care Document ---
Author Name Unknown Organization [facility] [id number] Address [address] [place] [id number] Care Team Providers Care Pest Management Supervisor Name Role Phone Yady Craig Louie Primary Care Physician [phone] [id number]s): 11/18/24 - 11/18/24 [facility] 0 [place] [id number] [facility] [address] [place] [id number] Encounter Diagnosis Status post total left knee replacement(Discharge Diagnosis) - 11/18/24 Right knee DJD(Discharge Diagnosis) - 11/18/24 Discharge Disposition: Home or Self Care Attending Physician: MD Alberto, Epifanio A Allergies, Adverse [...] Refills: 1, PRN: as needed for pain,Pharmacy: [id number] Start Date: 08/02/24 Status: Ordered cyanocobalamin 1000 mcg/mL injectable solution Start: 06/13/17 7:58:00 AM EDT Start Date: 06/13/17 Status: Ordered Euflexxa 10 mg/mL intra-articular solution Start: 05/08/24 2:14:00 PM EDT, 20 mg =, intra-articular, q7days, Disp# 12 mL, Refills: 0, B/L KNEE DJD M17.0, Note to Pharmacy: 6 syringes for B/L knees. Please ship to physician's office: [address] [place] [address], other Start Date: 05/08/24 Stop Date: 05/29/24 Status: Ordered Iron 100 Plus Start: 06/13/17 7:59:00 AM EDT Start Date: 06/13/17 Status: Ordered naproxen 500 mg oral tablet See Instructions, Disp# 20 tab, Refills: 2, take 1 tablet twice a day x10 days as needed for pain. take with food., Pharmacy: [id number] Start Date: 02/20/22 Status: Ordered [...] Start Date: 06/13/17 Status: Ordered Mental Status 11/18/24 Barriers to Learning one year None evide nt Mandatory Health Literacy Documentation Yes Health Literacy Communication Barriers N ever Primary Language Israeli Problem List Condition Confirmation Course Effective Dates [...] Diagnosis Diagnosis Type Effective Dates Health Status Clinical Service Informant Status post total left knee replacement Discharge Diagnosis 11/18/24 Non-Specified Right knee DJD Discharge Diagnosis 11/18/24 Procedures Procedure Date Related Diagnosis Body Site Status Abdominal hysterectomy 1 Completed Abdominal panniculus 2, 3 Completed Breast 4 Completed Cardiac monitoring 5 Comp leted Gallbladder 6 Completed Gastric bypass operation 7 Completed Tonsillectomy 8 Completed 1WITH APPENDECTOMY 1983 3WITH BREAST LIFT 4breast lift abdominoplasty and thigh plasty 5[facility] [id number] Social History Social History Type Response Smoking Status Never smoked cigaret jennifer Sex Female Sex Representation Female (finding) Ortho Outpt Note * MD Alberto, Epifanio A: MODIFY MD Alberto, Epifanio A: MODIFY, MODIFY Event Display: Ortho Outpt Note Authored Date: [id number] Name:MAGALI HOU Patient Number:[id number] :1960 Date of Service:11/18/2024 CHIEF COMPLAINT: Follow-up s/p left TKA, DOS: 10/06/2024 HPI: [id number] yearoldFejuan antonio presents today forfollow-up s/p the above noted procedure. Patients reports she is doing well overall and is very pleased. She has been able to wearheels without any difficulty and dancing. She is completed with formal PT at this point. She is interested in scheduling surgery for her right knee as soon as possible. Today she rates her left knee p ain 0/10. PHYSICAL EXAM: Focusing on the patient'sbilaterallower extremity: 2+ DP pulse Sensation to light touch is intact Motor to the gastroc soleus, tibialis anterior, and EHL is 5/5. Able to perform straight leg raise. Focus on the left lower extremity: Range of motion 0 - 115 - Tenderness to palpation Incision well-healed Focusing on the patient'srightlower extremity: + Medialjoint line tenderness. -Cece's Ligamentous examination exhibits: Stable Angelic 0 mm anterior translation and firm endpoint Posterior drawer stable Varus stress at 0 and 30 stable Valgus stress at 0 and 30 stable - Effusion Range of motion 0 - 120 RADIOGRAPHY: I obtained and personally interpreted 3 views including bilateral AP standing left knee lateral andsunrise viewswhich shows cemented total knee components ingood position without evidence of loosening. Degenerative changes noted on her right knee. calcifications in the posterior vessels and small calcification in her fat pad. I reviewed the radiographs of bilateral knees from 06/10/2024 in the [facility] system, which show joint space narrowing, sclerosis, marginal osteophytes, subchondral cysts and severe [id number] patellofemoral compartment bilaterally IMPRESSION: 1) 10 weeks s/p left TKA, Doing well 2) Right knee OA GOAL: Continue progressing for the left knee, Decrease pain in the right knee PLAN:I am very pleased with how well she is doing following her left TKA. After a lengthy discussion with the patient today regarding my above clinical findings, as well as reviewing their imaging with them, their treatment options of conservative management with injections, activity modifications versus surgical intervention with a knee replacement were discussed. - The risk and benefits of each were discussed. The risks of surgery included but not limited to: Infection, bleeding, nerve damage, continued pain, failure of hardware, deep vein thrombosis, PE, stroke, MS, and . - They would like to proceed with surgery and informed consent was signed for right TKA. - They will speak with my field examiner and have a history and physical examination performed. - For the left knee continue progressing activities as tolerated. Advised on antibiotics for dentalprophylaxis and UV incision protection. The patient understood all my instructions and explanation; all their questions were satisfactorilyaddressed. ATTESTATION: I, Celia Tyler, scribing forand in the presence of, Epifanio Dominguez, on this date,11/18/2024 08:29:00. Electronic Signature on File Electronically Reviewed/Signed by: Celia Tyler Author Signature Dt/Tm:11/18/2024 09:01 AM Electronically Reviewed/Signed by: Epifanio Dominguez MD Cosigner Signature Dt/Tm: 11/18/2024 09:03 AM [facility] Enrollment Management Coordinator Department of Orthopaedics and Rehabilitation [facility] [address], [place] [address] [place] Patient Care team information Care Team Personnel Name: MD Rafa, Yady Palma Position: Referring Member Role: Primary Care Provider Address: [address] [place] [address] [place] Care Team Related Persons Name: CLEMENT HOU
--- OUTSIDE RECORDS SUMMARY | 2024-11-30 07:00 | External Medical Summary ---
Author Name Unknown Address Unknown Organization : Laboratory Report Ordering Provider Test Date Status MILIND OZUNA 11/24/2024 15:37:41 Final Observation Date Value Abnormality Reference (Units ) Status Vitamin A, level 11/24/2024 15:37:41 49 38- 98 (mcg/dL) Final Vitamin supplementation with in 24 hours prior to
blood draw may affect the accuracy of the results.
This test was developed and its analytical performance
characteristics have been determined by [facility] [place], [place]. It has
not been cleared or approved by the U.S. Food and Drug
Administration. This assay has been validated pursuant
to the CLIA regulations and is used for clinical
purposes.

Test Performed at:
[facility]
[address] [facility]
[place] [address]
Lamonte Rogers M.D., Ph.D.,Director of Laboratories Performing Location
--- OUTSIDE RECORDS SUMMARY | 2024-11-30 07:00 | External Medical Summary | Summary of Care ---
Author Name Unknown Organization [facility] Address [address] [facility] [place] [address] Phone [phone] Care Team Providers Care Protection Agent Name Role Phone Yady Craig MD Primary Care Provider Reason for Visit * Reason Comments Outpatient Testing Encounter Details Date Type Department Care Team (Late st Contact Info) Description 11/24/2024 4:40 PM EST Laboratory Laboratory, [facility] [address] 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 file Not on file Not on file documented as of this encounter Plan of Treatment Upcoming Encounters Date Type Department Care Team (Late st Contact Info) Description 11/24/2024 4:00 PM EST Office Visit Family Practice [facility] [address] [facility] [place] [address] Donald Benítez MD [address] [facility] [place] [address] Encounter for preprocedural laboratory examination* 08/09/2025 3:00 PM EDT Office Visit Cardiology, [facility] [address] [facility] [place] [address] Mirta Prado CRNP [address] [facility] [place] [address] Scheduled Procedures Name Priority Associated Diagnoses Date/Ti [...] exists DXA Scan 02/05/2024 COVID-19 Vaccine ( season) 2024 09/22/2021, 03/09/2021, [...] filedocumented as of this encounter Care Teams Protection Agent Relationship Specialty Start Date End Date Yady Craig MD [address] [place] [address] PCP - General Internal Medicine 02/06/23 documented as of this encounter
[2024-11-30] MEDS: ACETAMINOPHEN 500 MG TAB PO SCH ×2 (07:43→15:00)
[2024-11-30] MEDS: LR 500ML BOLUS, THEN 15ML/HR IV SCH (07:43)
[2024-11-30] MEDS: CeleBREX 200 MG CAP PO SCH (07:43)
[2024-11-30] MEDS: LR 60ML/HR IV SCH (07:44)
[2024-11-30] MEDS: Scopolamine 1 MG TDSY TD SCH (07:45)
[2024-11-30] MEDS ORDERED: PROMETHAZINE HCL 6.25 MG in SODIUM CHLORIDE 0.9% 50 ML IV PRN (07:48)
[2024-11-30] MEDS ORDERED: ONDANSETRON INJ 2 MG/ML 2 ML VIAL IV PRN ×2 (07:48→11:57)
[2024-11-30] MEDS ORDERED: fentaNYL citrate PF 100 MCG/2 ML VIAL IV PRN (07:48)
[2024-11-30] MEDS ORDERED: ePHEDrine sulfate 50 MG/ML AMP IV PRN (07:48)
[2024-11-30] MEDS ORDERED: ATROPINE SULFATE 0.1 MG/ML 10ML SYR IV PRN (07:48)
[2024-11-30] MEDS ORDERED: MIDAZOLAM HCL 1 MG/ML 2ML VIAL ONE (07:57)
[2024-11-30] MEDS ORDERED: GLYCOPYRROLATE 0.2 MG/ML VIAL ONE (07:57)
[2024-11-30] MEDS ORDERED: PROPOFOL IV EMULSION 10 MG/ML 20 ML VIAL IV ONE ×2 (07:57→09:10)
[2024-11-30] MEDS ORDERED: ONDANSETRON INJ 2 MG/ML 2 ML VIAL ONE (07:57)
[2024-11-30] MEDS ORDERED: KETAMINE HCL 10MG/ML SYR ONE (08:00)
--- NOTE | 2024-11-30 08:38 | History & Physical Bridge Note ---
Date of Service November 30, 2024 History & Physical Bridge Note I have examined the patient, reviewed the History & Physical and in the interval since the performance of the History & Physical I have noted the following changes of clinical significance: no changes noted
[2024-11-30] MEDS: TRANEXAMIC ACID 1,000 MG **IV Pre-op IV SCH (08:46)
[2024-11-30] MEDS: ceFAZolin 2000MG 2,000 MG/15 ML SYR IV SCH ×2 (09:02→18:26)
[2024-11-30] MEDS: ORTHO JOINT ANESTHETIC ONE (10:44)
[2024-11-30] MEDS: ROPIV 0.5% 246mg, Ketorolac 30mg, EPINEPHrine 0.5mg in NSS INFIL SCH (10:50)
[2024-11-30] MEDS: TRANEXAMIC ACID 1,000 MG **IV Intra-op IV SCH (11:03)
--- NOTE | 2024-11-30 11:45 | Post Operative Brief Note ---
Immediate Post Op Note Date of Surgery November 30, 2024 Pre & Post Diagnosis Operation Date: 11/30/24 09:15 Pre-Op Diagnosis: Right Knee Oseteoarthritis Post-Op Diagnosis: Right Knee Oseteoarthritis I identified the patient and participated in the time-out.: Yes Procedure Operation Date: 11/30/24 09:15 Actual Procedures p Right Total Knee Arthroplasty, Cemented(Right) - Epifanio Dominguez MD Surgeon Epifanio Dominguez MD Mechanical Assembly Rodney Jenkins PA-C (No fellow avail) Estimated Blood Loss 50 Findings Consistent with Post-Op Diagnosis Fluids 1200 cc Specimens Right knee contents Anesthesia Type MAC Spinal Regional Complications none
--- NOTE | 2024-11-30 11:46 | Operative Report ---
Post Operative Report Pre & Post Diagnosis Operation Date: 11/30/24 09:15 Pre-Op Diagnosis: Right Knee Oseteoarthritis Post-Op Diagnosis: Right Knee Oseteoarthritis I identified the patient and participated in the time-out.: Yes Procedure Operation Date: 11/30/24 09:15 Actual Procedures p Right Total knee replacement, imageless computer assisted navigation - Epifanio Dominguez MD Surgeon Epifanio Dominguez MD Steward/Stewardess Economy Class Rodney Jenkins PA-C (No fellow avail) Estimated Blood Loss 50 Findings See Below Examined Under Anesthesia: ROM -- There was 0 degrees to 130 degrees of flexion Ligamentous examination -- revealed stable Angelic, posterior drawer, varus and valgus stress at 0 and 30 degrees. Outerbridge Grade IV changes of all 3 compartments. Fluids 1200 cc Specimens Right knee contents Anesthesia Type MAC Spinal Regional Complications none Indications This is a 64-year-old female who has clinical and radiographic findings consistent with osteoarthritis of the a right knee. I recommended that a right total knee replacement be performed. The patient understands the risks of surgery, which include but not limited to: bleeding, infection, re-operation, damage to nerves and arteries, continued knee pain, knee stiffness, DVT, and . The patient understands all these instructions and explanations, all his questions have been satisfactorily addressed and the patient has elected to proceed. Informed consent was signed. Description of Procedure IMPLANTS: 1. Femur: Triathlon #4 Right PS. 2. Tibia: Triathlon #3 [place] with 12 x 50 mm stem. 3. Insert: Triathlon #3 x 11 mm PS X3 poly. 4. Patella: Triathlon A29 x 9 mm X3 poly. 5. Palacos cement. Rodney Jenkins PA-C is assisting with positioning, retracting, and closure due to fellow not available. Procedure: The patient was taken to the Operating Room and placed in the supine position after spinal and adductor canal nerve block was administered. My initials and a multidisciplinary time-out were used to identify the right leg as the correct operative limb. A tourniquet was placed high in the thigh. Prior to the incision, 2 grams of intravenous Ancef were given. One g of TXA was given pre- operatively and another after the tourniquet was released. The right leg was then prepped and draped in a standard sterile fashion. An Esmarch was used to exsanguinate the leg and the tourniquet was inflated to 250 mmHg. The planned mid-line 20 cm incision was created exposing the extensor mechanism. The medial parapatellar arthrotomy was made and the patella was everted. The patella was addressed first. It was prepared by reaming from 18 mm down to 12 mm. An A29 button was found to fit best. The peg holes were made in the standard fashion. The femur was addressed next and using computer assisted OrthoAlign with 3 degrees of flexion and 0 degrees of valgus, removing 10 mm in the standard fashion for the distal cut. The cut was made and the 4-in-1 cutting block for a size 4 femur was placed. These cuts and the cuts to place the box were made in the standard fashion. Our attention was then drawn to the tibia cut with using imageless computer assisted OrthoAlign, taking 9 mm from the medial high side. There was sufficient extension and flexion gap to fit a 11 mm spacer. A #3 Tibial baseplate fit well. A trial with a 11 mm spacer showed excellent stability in both flexion and extension, with good ligament balance, and thumbs free patellar tracking. Range of motion of 0-135 degrees. The tibial baseplate was prepped for the keel and stem. A stem was used due to some areas of soft bone, to avoid subsidence. All components were removed. 90 ml of total knee cocktail were injected into the soft tissues and periosteum. All surfaces were copiously irrigated prior to placement of the components. The femoral component followed by Tibial baseplate were cemented in place and a 11 mm trial placed. Next, the patellar button was placed using the same cement. Once the cement had cured, the range of motion and stability were unchanged. The 11 mm X3 poly was placed. Again, the range of motion and stability were unchanged. The tourniquet was deflated. Hemostasis was obtained. Another 1g TXA was given. The extensor mechanism was closed with 1-0 Vicryl and 0 Stratafix with the knee bent approximately 60 degrees in a standard fashion. The peritenon and deep fascia was closed with 2-0 Vicryl. The subcutaneous layer was closed with 3-0 Vicryl. The skin was closed with Zipline and shield. The limb was cleaned and dried. 4x4 dressing was placed over top followed by ABDs, sterile Webril, and a foot to thigh Meño bandage. The patient was then transferred to the Recovery Room in stable condition. The sponge and needle counts were correct. POST-OP INSTRUCTIONS: The patient will be WBAT. The patient will be admitted to the hospital. Complete 24-hour course antibiotics. Labs will be obtained during the stay. DVT prophylaxis will include aspirin for 6 weeks, TEDs, and mechanical foot pumps. The dressing will be changed postop day #1-3 and covered with a Silverlon dressing. I attest to the content of the Intraoperative Record and any orders documented therein. Any exceptions are noted below.
[2024-11-30] MEDS ORDERED: bisacodyL 10 MG SUPP PR PRN (11:57)
[2024-11-30] MEDS ORDERED: ALUMINUM/MAGNESIUM SUSP 30 ML UDC PO PRN (11:57)
[2024-11-30] MEDS ORDERED: MAGNESIUM HYDROXIDE SUSP 30 ML UDC PO PRN (11:57)
[2024-11-30] MEDS ORDERED: diphenhydrAMINE 50 MG/ML VIAL IV PRN (11:57)
[2024-11-30] MEDS ORDERED: NALOXONE HCL 0.4 MG/1 ML VIAL/CARP IV PRN (11:57)
[2024-11-30] MEDS ORDERED: METOCLOPRAMIDE HCL INJ 5 MG/ML 2 ML VIAL IV PRN (11:57)
--- NOTE | 2024-11-30 11:57 | Operative Report ---
Post Operative Report Pre & Post Diagnosis Operation Date: 11/30/24 09:15 Pre-Op Diagnosis: Right Knee Oseteoarthritis Post-Op Diagnosis: Right Knee Oseteoarthritis I identified the patient and participated in the time-out.: Yes Procedure Operation Date: 11/30/24 09:15 Actual Procedures p Right Total Knee Arthroplasty, Cemented(Right) - Epifanio Dominguez MD Surgeon Epifanio Dominguez MD J2Ee Developer Rodney Jenkins PA-C (No fellow avail) Estimated Blood Loss 50 Findings Consistent with Post-Op Diagnosis Specimens Bone Description of Procedure I was present for the entire case. I assisted with positioning, prepping, draping, retraction, suctioning, wound closure, and dressing application. Please refer to Dr. Dominguez's procedure note for full details. I attest to the content of the Intraoperative Record and any orders documented therein. Any exceptions are noted below.
--- NOTE | 2024-11-30 11:59 | Anesthesiology Progress Note ---
Date of Service November 30, 2024 Anesthesia Post Procedure Vital Signs Vital Signs: Temp Pulse Resp BP Pulse Ox O2 Del Method 11/30/24 07:30 36.4 C L 90 20 141/93 H 97 Room Air Pain Intensity Right Knee: Pain Intensity: 2 Transfer of Care Handoff Completed per policy Notes Mental Status: alert / awake / arousable and participated in evaluation Patient Amnestic to Procedure: Yes Nausea / Vomiting: adequately controlled Pain: adequately controlled Airway Patency, RR, SpO2: stable & adequate BP & HR: stable & adequate Hydration State: stable & adequate Neuraxial Anesthesia: was administered and sensory block is resolving Anesthetic Complications: no major complications apparent and Pt Satisfied with anesthetic care
--- NOTE | 2024-11-30 13:31 | XRay Report ---
XR knee RT 1 or 2V routine HISTORY: 64 years-old Female Surgical Post Op right knee arthroplasty COMPARISON: 06/10/2024 TECHNIQUE: 2 views of the right knee FINDINGS: Total joint arthroplasty with patellar resurfacing. The tibial stem is eccentrically located within t he proximal tibial medullary space. The adjacent cortex is intact. Soft tissue swelling with deep tis sejal air. No acute fracture or dislocation. Arterial calcifications. IMPRESSION: 1. Right knee arthroplasty as above. 2. No acute fracture. ACT 112: Negative or not required by law. The above report was generated using voice recognition software. It may contain grammatical, syntax o r spelling errors. Electronically signed by: Christiano Celis M.D. 11/30/2024 1:30 PM
[2024-11-30] MEDS: Scopolamine CHECK PATCH PLACEMENT SCH (18:26)
[2024-11-30] MEDS: FERROUS GLUCONATE 324 MG TAB PO SCH (18:27)
[2024-11-30] MEDS: ASCORBIC ACID 500 MG TAB PO SCH (18:27)
[2024-11-30] MEDS: oxyCODONE HCL IR 5 MG TAB (IMMEDIATE RELEASE) PO PRN (18:35)
[2024-11-30] MEDS: SENNA 8.6 MG TAB PO SCH (20:16)
[2024-11-30] MEDS: CALCIUM CARBONATE 1250MG TAB PO SCH (20:16)
[2024-11-30] MEDS: rOPINIRole HCL 2 MG TABLET PO SCH (20:16)
[2024-11-30 23:44] VITALS: RESP 18
[2024-12-01 06:58] LABS: Hematocrit (blood only) 33.3 % (37.0-47.0); Hemoglobin 10.7 g/dl (12.0-16.0); Mean Corpuscular Hemoglobin 25.4 pg (25.0-34.0); Mean Corpuscular Hgb Conc 32.1 g/dL (32.0-36.0); Mean Corpuscular Volume 79.1 fL (80.0-100.0); Mean Platelet Volume 9.5 fL (9.4-12.4); Platelet Count 274 K/uL (130-400); RDW Coefficient of Variation 14.1 % (11.5-14.5); RDW Standard Deviation 40.8 fL (36.4-46.3); Red Blood Count 4.21 M/uL (4.20-5.40); White Blood Count 7.99 K/ul (4.8-10.8)
[2024-12-01 07:17] LABS: BUN Creatinine Ratio 21.7 (10-20); Calcium 8.9 mg/dl (8.6-10.3); Creatinine Clr Calc Pharmacy 57.1 ml/min; Potassium 4.3 mmol/L (3.5-5.1)
[2024-12-01] MEDS: MULTIVITAMIN TAB PO SCH (08:20)
[2024-12-01] MEDS: ASPIRIN 81 MG ECTAB PO SCH (08:20)
[2024-12-01] MEDS: OXYBUTYNIN CHLORIDE XL 5 MG TABCR PO SCH (08:21)
[2024-12-01] MEDS: CeleBREX 200 MG CAP PO SCH (08:21)
[2024-12-01] MEDS: rOPINIRole HCL 1 MG TABLET PO SCH (08:21)
[2024-12-01] MEDS: DOCUSATE SODIUM 100 MG CAP PO SCH (08:23)
--- NOTE | 2024-12-01 10:47 | Orthopedic Progress Note ---
Date of Service December 01, 2024 Assessment & Plan (1) S/P total knee arthroplasty: Plan: Postop day #1 status post right total knee arthroplasty with Dr. Dominguez. Doing well overall. Feels that she can go home today. She has home health in place for the next 2 weeks. Her post op labs show a Hemoglobin 10.7 likely secondary to acute blood loss anemia from the surgery. No other concerns were noted. Postop x-ray demonstrated appropriate findings with no fracture. She had some dried bloody drainage on her initial bandage which was applied in the OR yesterday. This was taken down and she did not have any active bleeding or drainage. Wound was cleansed with sterile saline and dried. A Silverlon dressing was applied. Millie stocking reapplied. She can shower with the silverlon dressing. Plan is to discharge the patient as long as she passes PT and OT. She will be discharged with pain medication. She also took Celebrex with her last total knee and did well with that, she has additional Celebrex at home and does not need a prescription. She will be weightbearing as tolerated with a rolling walker. Aspirin 81 mg twice daily for DVT prophylaxis. MILLIE stockings for the next 6 weeks. Elevate and ice Follow up in office at scheduled appointment. She understands to contact the office with any questions or concerns. Admission and Anticipated Discharge Date Admission Date: November 30, 2024 Cayden Briggs was seen today in bed. She just participated with PT. Had some stiffness in the knee which loosened up with PT. Endorsed some progressive pain with prolonged walking during PT but pain improved with rest. Denies any numbness or tingling in her toes, no calf pain. No shortness of breath. She feels comfortable going home today. Physical Exam Constitutional: Well-developed, well-nourished, resting comfortably in bed. In no distress. Pleasant. Cardiovascular: Right DP pulse 2+ Musculoskeletal: Right lower extremity: Dried bloody drainage present on the bandage. Dressing taken down. There is no active drainage. The wound is well approximated, Zipline is in place. No surrounding erythema. There is some mild diffuse swelling about the knee expected after surgery. Unable to express any fluid through the incision. Able to perform straight leg raise. No calf tenderness. Ambulates with walker. Strength 5/5 with plantarflexion and dorsiflexion of the ankle. Moves all toes. Neurologic: No sensory deficits in right lower extremity to light touch Results & Data Vital Signs (Past 12 Hours) Vital Signs Temp Pulse Pulse Resp BP Pulse Ox O2 Del Method 12/01/24 07:07 97.9 F 72 18 114/76 96 Room Air 12/01/24 03:30 97.7 F 60 18 128/86 97 Room Air 11/30/24 23:43 97.7 F 67 18 103/69 95 Room Air Laboratory Results 12/01/24 06:26 WBC 7.99 RBC 4.21 Hgb 10.7 L Hct 33.3 L MCV 79.1 L MCH 25.4 MCHC 32.1 RDW Std Deviation 40.8 RDW Coeff of Rolando 14.1 Plt Count 274 MPV 9.5 Sodium 135 L Potassium 4.3 Chloride 102 Carbon Dioxide 28 Anion Gap 5 BUN 18 Creatinine 0.83 Est Cr Clr Drug Dosing 57.1 eGFR 78.18 BUN/Creatinine Ratio 21.7 H Glucose 135 H Calcium 8.9 Diagnostic Findings Knee X-Ray 11/30/24 11:57 XR knee RT 1 or 2V routine HISTORY: 64 years-old Female Surgical Post Op right knee arthroplasty COMPARISON: 06/10/2024 TECHNIQUE: 2 views of the right knee FINDINGS: Total joint arthroplasty with patellar resurfacing. The tibial stem is eccentrically located within the proximal tibial medullary space. The adjacent cortex is intact. Soft tissue swelling with deep tissue air. No acute fracture or dislocation. Arterial calcifications. IMPRESSION: 1. Right knee arthroplasty as above. 2. No acute fracture. ACT 112: Negative or not required by law. The above report was generated using voice recognition software. It may contain grammatical, syntax or spelling errors. Electronically signed by: Christiano Celis M.D. 11/30/2024 1:30 PM (1) S/P total knee arthroplasty Laterality: right Qualified Code(s): Z96.651 - Presence of right artificial knee joint
[2024-12-01 11:06] VITALS: BP 145/87; TEMP 98.1; O2SAT 97
[2024-12-01] MEDS: HYDROmorphone INJ 0.5 MG/0.5 ML SYR IV PRN (11:40)
--- NOTE | 2024-12-01 11:54 | Discharge Summary ---
Date of Service December 01, 2024 Principal Diagnosis s/p Right total knee arthroplasty Discharge Data Allergies Allergy/AdvReac Type Severity Reaction Status Date / Time gabapentin AdvReac Fluid Verified 11/30/24 07:26 retention Procedures Performed Operation Date: 11/30/24 09:15 Actual Procedures p Right Total Knee Arthroplasty, Cemented(Right) - Epifanio Dominguez MD Hospital Course (1) S/P total knee arthroplasty: Brigitte is a 64-year-old female who underwent an uncomplicated right total knee arthroplasty with Dr. Dominguez yesterday 11/30/2024. She was observed overnight. Received pain medication. Received 24 hours of IV Ancef for infection prevention. She had some dried bloody drainage on her initial bandage and this was taken down this morning. No active bleeding or drainage was appreciated and the wound appeared to be clean, dry, and intact. A Silverlon dressing was applied which will stay in place until Zipline removal and she can shower with this. Her postop labs showed a mild likely acute blood loss anemia with hemoglobin of 10.7. No other concerns were noted. Postop x-rays showed expected findings Patient participated with physical therapy and Occupational Therapy today and was deemed appropriate for discharge home. She has home health scheduled. For pain control she will take Tylenol, Celebrex, and oxycodone as needed. She will be weightbearing as tolerated with walker. Does not require a knee brace. Aspirin 81 mg twice daily for DVT prophylaxis. TEDS stockings for the next 6 weeks. Elevate and ice. Follow-up in our office at scheduled appointment. We discussed reasons to contact the office with any questions or concerns. Total Time Total Time Spent Total Time Spent (In Minutes): 20 Discharge Plan Discharge Items Patient Disposition: Home - Home Health Services Reason For Visit: Right Knee Oseteoarthritis Discharge Diagnosis: s/p right total knee arthroplasty Activity: Per Instructions section Non-emergency contact: Surgeon Call non-emergency contact if: your pain is not controlled, you have a fever and your wound has increased drainage Follow-up/Referrals: Yady Craig MD [Primary Care Provider] - Mariangel Diaz PA-C [Physician Automatic Clipper] - 12/14/24 10:00 am Diet: Regular Addtl Attending Provider Instructions: POST OPERATIVE DISCHARGE INSTRUCTIONS Pain Control Please take the follow medications for pain control, as well as icing and elevating your operative extremity. Pain after surgery is to be expected. We may not be able to take away all of your pain, but the goal is to make your pain manageable - Extra strength Tylenol 1,000mg (2 tabs) every 8 hours - Oxycodone 5-10mg (1-2tabs) every 4-6 hours as needed - Celebrex 200mg daily for two weeks DVT Prophylaxis With any surgery, you are at increased risk for blood clots. Please take the follow measures to prevent blood clots and read the warning signs to watch for. Please take the follow anticoagulant: Aspirin 81mg twice a day for 6 weeks If you were given MILLIE compression stockings, these are to be worn on both legs for 18-20 hours daily for 2 weeks, or for 3 weeks for any lower extremity surgery. Warning signs: Calf pain, lower extremity swelling, numbness/tingling, skin discoloration, increased pain, shortness of breath, chest pain. Please contact our office if you experience any of these symptoms or call 911 if you are having trouble breathing. Ice Ice your operative site at least 5 times a day for 15-30 minutes at a time, for the first three days, then as needed. This will help to reduce swelling and imchele n. Make sure you have a thin cloth between the ice or cooling unit and your skin to prevent sal bite. This is especially important if you received a nerve block. Diet/Nausea/Vomiting Start by drinking clear liquids and eating crackers. If you can tolerate this, then you may resume your normal diet. If you feel nauseated or vomit, take Zofran/ondansetron (if prescribed). Please call our office if you have intractable nausea or vomiting, or, if after hours, you may go to the Emergency Room for help. Surgical Dressing Please leave on any dressing until you are seen by either PT or PA for your post-operative appointment, unless you are otherwise instructed. If there are any issues with your dressing please give our office a call. Weight bearing, Range of Motion, Activity You will be weight bearing as tolerated on your operative site. you may use crutches or walker to assist in ambulation. Physical therapy You will do your rehab for the first two weeks with home health. Then you will begin outpatient physical therapy. It is very important you follow your rehab protocol and do your exercises as instructed by your provider and physical therapist. Wound care and showering We will inspect your wound at your first post-operative visit. It is normal to see some dried blood on the dressing. Do not remove your dressing, paper strips or sutures yourself unless otherwise instructed. Showering is allowed post op day 3. Do not scrub or remove any dressings, unless you are otherwise instructed. Once your dressing is changed in the office to the water-resistant dressing. You can shower with this on as long as all the edges are in tact. To promote wound healing, we recommend taking a multi-vitamin, or taking 500mg Vitamin C supplement twice a day for two weeks and 325mg Iron supplement twice a day for two weeks. This is especially important if you had a total joint replacement. Constipation Constipation is a common side effect of narcotic pain medication, dehydration after surgery and iron supplement (if you were instructed to begin that after surgery). We recommend purchasing an nohl-xrz-qjazulo laxative such as Milk of Magnesia, Colace, Dulcolax, Miralax or Senna from a local pharmacy, and taking it as instructed. Stay hydrated and you may increase your fiber in your diet as well. Call our clinic if any questions. Driving You may not drive while taking narcotic pain medication or while in a cast, splint, sling or brace. Driving will be discussed at your first post op appointment Return to Work Your return to work depends on what surgery was done and what type of work you do. Please bring any paperwork your employer needs completed to your first post-operative visit. Also, bring a description of your job duties, as this helps us to understand what risks you may face at work. Travel Avoid long distance travel (greater than 1 hour) in airplanes and cars for the first 6 weeks after surgery. Follow-up Please attend your post operative appointments as scheduled. At these appointments, we may do dressing change and remove any sutures/jerman/Zip-line 10-14 days after your surgery. If you do not know your post operative appointment dates or times please call the office at [phone] When to call the office It is normal to have swelling and bruising in the limb that was operated on. This will improve with time. It is also normal to have fevers for the first 2 days after surgery. Reasons you should call your doctor include: Uncontrolled pain; Nausea, vomiting, or constipation that does not improve with medication; Fevers over 101.5, chills, sweats; Drainage or bleeding from the wound; Foul odor; Spreading areas of redness; calf pain or swelling, shortness of breath, chest pain; Any other concerns You may call the office at [phone]. If it is a medical emergency please call 911. Pending Studies at Discharge: Yes Studies:: Bone pathology Stand-Alone Forms: [facility], Smoking Cessation Medications and DC Order Prescriptions: New aspirin 81 mg Tablet,Delayed Release (Dr/Ec) 81 mg PO BID Qty: 30 0RF acetaminophen [Tylenol Extra Strength] 500 mg Tablet 1,000 mg PO Q8H Qty: 30 0RF ascorbic acid (vitamin C) [Vitamin C] 500 mg Tablet 500 mg PO BIDM Qty: 30 0RF docusate sodium 100 mg Capsule 100 mg PO BID Qty: 30 0RF oxycodone 5 mg Tablet 5 - 10 mg PO Q4H MDD 6 tabs PRN (Reason: pain) Qty: 18 0RF ferrous gluconate 324 mg (38 mg iron) Tablet 324 mg PO BIDM Qty: 30 0RF Continued cyanocobalamin (vitamin B-12) 1,000 mcg/mL solution 0 mcg IM MONTHLY Patient Comments: plans for today 09/21/24 cholecalciferol (vitamin D3) [Vitamin D3] 125 mcg (5,000 unit) Tablet 250 mcg PO WK Patient Comments: mondays multivitamin Tablet 1 tab PO QAM ropinirole 1 mg Tablet 1 mg PO QAM celecoxib [Celebrex] 200 mg Capsule 200 mg PO HS Hold Instructions: Resume on 11/18/24. calcium 600 mg Capsule 600 mg PO HS ropinirole 1 mg Tablet 2 mg PO HS Rx Instructions: administer 1-3 hours before bedtime oxybutynin chloride 10 mg Tablet Extended Release 24hr 10 mg PO QAM Discontinued acetaminophen [Tylenol Extra Strength] 500 mg Tablet 1,000 mg PO Q8 Qty: 30 0RF ascorbic acid (vitamin C) [Vitamin C] 500 mg Tablet 500 mg PO BIDM Qty: 30 0RF ferrous gluconate 324 mg (38 mg iron) Tablet 324 mg PO BIDM Qty: 30 0RF Admission Data Admit Date/Time: 11/30/24 11:57 Attending Provider: Epifanio Dominguez Admit Provider: Epifanio Dominguez Primary Care Provider: Yady Craig Other Interventions: Discharge Summary Assessment (RN) Last Done: 12/01/24 13:16
[2024-12-01 13:17] VITALS: PULSE 60
== END 2024-12-01 16:00 | disposition home health service (06) ==
LOC: PACUINP 06:53 → ASU 06:53 → 3E 14:49
DX: I10 Essential (primary) hypertension; R55 Syncope and collapse; Z79.899 Other long term (current) drug therapy; Z79.82 Long term (current) use of aspirin; G25.81 Restless legs syndrome; F32.A Depression, unspecified; Z87.891 Personal history of nicotine dependence; M17.11 Unilateral primary osteoarthritis, right knee; Z88.8 Allergy status to other drugs, medicaments and biological substances